=== PATIENT | female | born 1955 | race Caucasian/White ===

== ENCOUNTER 2019-01-24 18:59 | Inpatient (IN) | payer BC, MEDICARE, SELFPAY ==
[2019-01-24 19:04] VITALS: BP 126/71; PULSE 103; RESP 21; TEMP 36.2; O2SAT 100; BMI 21.7
--- NOTE | 2019-01-24 19:21 | ED.ABDPAIN ---
HPI - Abdominal Pain General Chief Complaint: Abdominal Pain Stated Complaint: Severe abd pain Time Seen by Provider: 01/24/19 19:04 Source: patient and family Mode of arrival: ambulatory Limitations: no limitations History of Present Illness HPI narrative: 63-year-old female nonsmoker with benign medical history presents with her in the chief complaint of severe abdominal pain with decreased bowel movements over the past day or 2, but then 4 BMs today. Her pain is become significantly worse over course of the day and she has persistent vomiting and has not been able to eat or drink. Related Data Home Medications Medication Instructions Recorded Confirmed calcium citrate-vitamin D3 1 tab PO DAILY 01/24/19 01/24/19 [Calcitrate-Vitamin D] [id number] 1 tab PO DAILY 01/24/19 01/24/19 [Multivitamin Women 50 Plus] simvastatin 5 mg PO DAILY 01/24/19 01/24/19 timolol maleate 1 drp EYE-LEFT BID 01/24/19 01/24/19 Allergies Allergy/AdvReac Type Severity Reaction Status Date / Time No Known Drug Allergies Allergy Verified 01/24/19 19:04 Review of Systems Constitutional Denies chills, Denies fever(s), Denies lethargy, Reports poor appetite and Denies weakness Eyes Denies change in vision, Denies eye discharge, Denies irritation and Denies loss of vision ENT Ears, Nose, Mouth, and Throat: Denies change in voice, Denies neck pain and Denies sore throat Cardiovascular Denies chest pain, Denies irregular heart rhythm, Denies lightheadedness, Denies palpitations, Denies dyspnea, Denies dyspnea on exertion and Denies orthopnea Respiratory Denies cough, Denies dyspnea, Denies dyspnea on exertion and Denies wheezing Gastrointestinal Gastrointestinal: Reports abdominal pain, Denies change in bowel habits, Denies diarrhea, Denies nausea and Denies vomiting Genitourinary Denies hematuria, Denies flank pain, Denies urinary incontinence and Denies urinary urgency Musculoskeletal Denies neck pain Integumentary/Breasts Denies pruritus, Denies erythema, Denies rash and Denies wounds Neurologic Denies confusion, Denies loss of vision and Denies weakness Psychiatric Denies anxiety, Denies confusion, Denies depression, Denies homicidal ideation and Denies suicidal ideation Endocrine Denies palpitations Hematologic/Lymphatic Denies easy bruising Allergic/Immunologic Denies wheezing [facility] Medical History Elevated cholesterol (Chronic) Surgical History History of (Resolved) Family History (Updated 01/24/19 @ 21:30 by Sorin Albarado MD) Brother Cancer Social History household members: spouse Smoking Status: Former smoker alcohol intake: current Family History Brother Cancer Social History household members: spouse Smoking Status: Former smoker alcohol intake: current Exam Narrative Exam Narrative: GENERAL: 63-year-old female appears stated age, obviously in significant distress, rubbing her abdomen rocking back and forth, holding an emesis bag HEAD: Atraumatic. Normocephalic. No temporal or scalp tenderness. EYES: Pupils equal round and reactive. Extraocular motions intact. No scleral icterus. No injection or drainage. ENT: Nose without bleeding, purulent drainage or septal hematoma. Throat without erythema, tonsillar hypertrophy or exudate. Uvula midline. Airway patent. NECK: Trachea midline. No JVD or lymphadenopathy. Supple, nontender, no meningeal signs. CARDIOVASCULAR: Regular rate and rhythm without murmurs, gallops, or rubs. RESPIRATORY: Clear to auscultation. Breath sounds equal bilaterally. No wheezes, rales, or rhonchi. GASTROINTESTINAL: Guarding in her mid abdomen which is soft but very tender EXTREMITIES: No clubbing, cyanosis, or edema. No joint tenderness, effusion, or edema noted. BACK: Nontender without deformity or crepitance. No flank tenderness. NEURO: AOx3. SKIN: No rash or erythema. Initial Vital Signs Initial Vital Signs: Vital Signs Temperature 97.1 F L 01/24/19 19:04 Pulse Rate 103 H 01/24/19 19:04 Respiratory Rate 21 01/24/19 19:04 Blood Pressure 126/71 01/24/19 19:04 Pulse Oximetry 100 01/24/19 19:04 Course Orders Ordered: ED Orders 01/24/19 19:09 EKG-12 Lead Stat 01/24/19 19:22 XR KUB Stat 01/24/19 19:35 Complete Blood Count AUTO DIFF Stat Comprehensive Metabolic Panel Stat Lipase Stat Partial Thromboplastin Time Stat Prothrombin Time INR Stat 01/24/19 20:44 CT abdomen pelvis w con Stat 01/24/19 21:00 Urine Microscopic Stat 01/25/19 02:10 MRSA PCR Routine 01/25/19 02:20 Consult to Discharge Planning Routine Education, smoking cessation ONGOING 01/25/19 05:00 Complete Blood Count AUTO DIFF Routine Comprehensive Metabolic Panel Routine Magnesium Routine Gabapentin (Neurontin) 300 mg PO BID [facility] Hydromorphone HCl (Dilaudid) 1 mg IV Q3H PRN PRN Reason: Pain, Severe (7-10) FENT 2MCG/ML BUPIV 0.125% EPI (Fentanyl/Bupiv/Ns 2mcg/Ml - 0.125%) 2 mcg in 1 mls @ 6 mls/hr EPIDURAL CONT [facility] Last Admin: 01/25/19 02:41 Dose: 6 mls/hr Lactated Ringer's (Lactated Ringers) 1,000 mls @ 125 mls/hr IV CONT [facility] Last Admin: 01/25/19 02:30 Dose: 125 mls/hr Piperacillin/Tazobactam/Dextrose (Zosyn) 3.375 gm in 50 mls @ 100 mls/hr IV Q6H [facility] Naloxone HCl (Narcan) 0.2 mg IV Q2MIN PRN PRN Reason: Opiate Reversal Ondansetron HCl (Zofran) 4 mg IV Q6HR PRN PRN Reason: Nausea And Vomiting Ondansetron HCl (Zofran) 4 mg IV Q4HR PRN PRN Reason: Nausea And Vomiting Timolol Maleate (Timoptic 0.5%) 1 drops EYE-LEFT BID [facility] Discontinued Medications Fentanyl (Sublimaze) 50 mcg IV Q5MIN PRN PRN Reason: Pain, Moderate (4-6) Hydromorphone HCl (Dilaudid) 0.5 mg IV NOW ONE Stop: 01/24/19 19:23 Last Admin: 01/24/19 19:28 Dose: 0.5 mg Hydromorphone HCl (Dilaudid) 0.5 mg IV NOW ONE Stop: 01/24/19 20:07 Last Admin: 01/24/19 20:10 Dose: 0.5 mg Hydromorphone HCl (Dilaudid) 0.5 mg IV Q5MIN PRN PRN Reason: Pain, Moderate (4-6) Sodium Chloride (Normal Saline 0.9%) 1,000 mls @ 1,000 mls/hr IV BOLUS ONE Stop: 01/24/19 20:21 Last Infusion: 01/24/19 21:06 Dose: 0 mls/hr Admin: 01/24/19 19:29 Dose: 1,000 mls/hr Lactated Ringer's (Lactated Ringers) 1,000 mls @ 42 mls/hr IV CONT [facility] Last Infusion: 01/25/19 00:11 Dose: 0 mls/hr Admin: 01/25/19 00:10 Dose: 42 mls/hr Piperacillin/Tazobactam/Dextrose (Zosyn) 3.375 gm in 50 mls @ 100 mls/hr IV NOW ONE Stop: 01/24/19 23:31 Last Infusion: 01/24/19 22:30 Dose: 0 mls/hr Admin: 01/24/19 22:20 Dose: 100 mls/hr Lorazepam (Ativan) 0.25 mg IV NOW PRN PRN Reason: Anxiety Metoclopramide HCl (Reglan) 10 mg IV NOW PRN PRN Reason: Nausea And Vomiting Ondansetron HCl (Zofran) 4 mg IV NOW ONE Stop: 01/24/19 19:23 Last Admin: 01/24/19 19:29 Dose: 4 mg Ondansetron HCl (Zofran) 4 mg IV NOW PRN PRN Reason: Nausea And Vomiting Oxycodone/Acetaminophen (Percocet 5/325) 1 tab PO Q30MIN PRN PRN Reason: Mild or moderate pain Consultations Consultation #1: Call to General surgery immediately upon completion of abdominal x-ray, he will see patient at bedside, requests CT, but plans for OR Vital Signs - 8 hr 01/24/19 20:03 01/24/19 21:05 01/24/19 21:40 Temperature 98.4 F Pulse Rate 72 88 91 H Respiratory Rate 14 14 Blood Pressure 164/87 H Blood Pressure [Left Arm] 144/73 H 140/72 Pulse Oximetry 98 98 100 01/25/19 00:56 01/25/19 00:59 01/25/19 01:05 Temperature 99.0 F Pulse Rate 116 H 119 H 131 H Respiratory Rate 19 17 29 H Blood Pressure 152/82 H 123/81 116/73 Blood Pressure [Left Arm] Pulse Oximetry 98 97 98 01/25/19 01:09 01/25/19 01:14 01/25/19 01:19 Temperature Pulse Rate 130 H 127 H 114 H Respiratory Rate 19 28 H 22 Blood Pressure 121/77 118/76 106/71 Blood Pressure [Left Arm] Pulse Oximetry 99 99 98 01/25/19 01:24 01/25/19 01:26 01/25/19 01:29 Temperature Pulse Rate 111 H 99 H 95 H Respiratory Rate 22 16 18 Blood Pressure 88/59 L 84/53 L 80/53 L Blood Pressure [Left Arm] Pulse Oximetry 97 96 96 01/25/19 01:34 01/25/19 01:38 01/25/19 01:40 Temperature Pulse Rate 95 H 85 80 Respiratory Rate 10 L 17 11 L Blood Pressure 76/31 L 82/45 L 81/48 L Blood Pressure [Left Arm] Pulse Oximetry 97 97 95 01/25/19 01:45 01/25/19 01:48 01/25/19 01:52 Temperature 99.6 F Pulse Rate 87 80 Respiratory Rate 18 14 Blood Pressure 76/41 L 76/46 L Blood Pressure [Left Arm] Pulse Oximetry 96 94 01/25/19 01:53 01/25/19 01:55 01/25/19 01:58 Temperature Pulse Rate 101 H 103 H 105 H Respiratory Rate Blood Pressure 102/51 L 105/38 L 112/63 Blood Pressure [Left Arm] Pulse Oximetry 01/25/19 01:59 01/25/19 02:17 01/25/19 02:32 Temperature 98.9 F Pulse Rate 101 H 103 H 99 H Respiratory Rate 21 17 Blood Pressure 106/55 L 116/60 114/57 L Blood Pressure [Left Arm] Pulse Oximetry 97 96 01/25/19 03:12 Temperature Pulse Rate 103 H Respiratory Rate 18 Blood Pressure 111/58 L Blood Pressure [Left Arm] Pulse Oximetry 95 MDM - Abdominal Pain Lab Data Result diagrams: 01/24/19 19:35 01/24/19 19:35 Lab Results 01/24/19 01/24/19 01/24/19 Range/Units 19:35 19:35 19:35 WBC 19.5 H (4.5-11.0) X10^3/uL RBC 4.92 (4.0-5.2) X10^6/uL Hgb 15.5 (12.0-16.0) g/dL Hct 46.2 H (36-46) % MCV 93.9 (80-100) fL MCH 31.6 (26-34) PG MCHC 33.6 (30-36) % RDW 13.5 (11.6-14.8) % Plt Count 304 (150-400) X10^3/uL Neut % (Auto) 85.9 H (50-75) % Lymph % (Auto) 5.3 L (25-40) % [place] % (Auto) 8.5 (3-14) % Eos % (Auto) 0.1 L (2-4) % Baso % (Auto) 0.2 (0-2) % Neut # (Auto) 97993 H (1085-4126) /uL Lymph # (Auto) 1000 L (6580-5615) /uL [place] # (Auto) 1700 H (0-900) /uL Eos # (Auto) 0 (0-450) /uL Baso # (Auto) 0 (0-100) /uL PT 11.0 (10.1-12.7) SECONDS INR 1.0 (0.9-1.3) APTT 28 (26.4-36.2) SECONDS Sodium 141 (137-145) mmol/L Potassium 3.8 (3.4-5.1) mmol/L Chloride 104 (98-107) mmol/L Carbon Dioxide 22 (22-32) mmol/L BUN 20 H (7-17) mg/dL Creatinine 0.70 (0.52-1.04) mg/dL Estimated GFR > 60.0 (>60) mL/min BUN/Creatinine Ratio 28.6 H (6-22) Glucose 163 H (80-110) mg/dL Calcium 10.0 (8.4-10.2) mg/dL Total Bilirubin 0.8 (0.2-1.3) mg/dL AST 35 (14-36) IU/L ALT 37 (9-52) IU/L Alkaline Phosphatase 98 (38-126) U/L Total Protein 7.5 (6.3-8.2) g/dL Albumin 4.8 (3.5-5.0) g/dL Globulin 2.7 (1.7-4.1) g/dL Albumin/Globulin Ratio 1.8 (1.0-2.8) Lipase 55 (23-300) U/L Urine RBC (0-5/HPF) Urine WBC (0-5/HPF) Urine Bacteria (None) Hyaline Casts (None) Ur Culture Indicated? 01/24/19 01/24/19 01/24/19 Range/Units 19:35 19:35 21:00 WBC Cancelled (4.5-11.0) X10^3/uL RBC Cancelled (4.0-5.2) X10^6/uL Hgb Cancelled (12.0-16.0) g/dL Hct Cancelled (36-46) % MCV Cancelled (80-100) fL MCH Cancelled (26-34) PG MCHC Cancelled (30-36) % RDW Cancelled (11.6-14.8) % Plt Count Cancelled (150-400) X10^3/uL Neut % (Auto) Cancelled (50-75) % Lymph % (Auto) Cancelled (25-40) % [place] % (Auto) Cancelled (3-14) % Eos % (Auto) Cancelled (2-4) % Baso % (Auto) Cancelled (0-2) % Neut # (Auto) Cancelled (4096-0685) /uL Lymph # (Auto) Cancelled (2743-9814) /uL [place] # (Auto) Cancelled (0-900) /uL Eos # (Auto) Cancelled (0-450) /uL Baso # (Auto) Cancelled (0-100) /uL PT (10.1-12.7) SECONDS INR (0.9-1.3) APTT (26.4-36.2) SECONDS Sodium Cancelled (137-145) mmol/L Potassium Cancelled (3.4-5.1) mmol/L Chloride Cancelled (98-107) mmol/L Carbon Dioxide Cancelled (22-32) mmol/L BUN Cancelled (7-17) mg/dL Creatinine Cancelled (0.52-1.04) mg/dL Estimated GFR Cancelled (>60) mL/min BUN/Creatinine Ratio Cancelled (6-22) Glucose Cancelled (80-110) mg/dL Calcium Cancelled (8.4-10.2) mg/dL Total Bilirubin Cancelled (0.2-1.3) mg/dL AST Cancelled (14-36) IU/L ALT Cancelled (9-52) IU/L Alkaline Phosphatase Cancelled (38-126) U/L Total Protein Cancelled (6.3-8.2) g/dL Albumin Cancelled (3.5-5.0) g/dL Globulin Cancelled (1.7-4.1) g/dL Albumin/Globulin Ratio Cancelled (1.0-2.8) Lipase Cancelled (23-300) U/L Urine RBC None seen (0-5/HPF) Urine WBC None seen (0-5/HPF) Urine Bacteria None seen (None) Hyaline Casts 1-5/lpf (None) Ur Culture Indicated? Cult not indicated Point of care testing: Urine Dip Bedside Urine Glucose Negative Bedside Urine Bilirubin - Negative Bedside Urine Ketone ++ 40 Urine Specific [place] 1.030 Bedside Urine Occult Blood - Negative Bedside Urine pH 5.5 Bedside Urine Protein +/- 15 Bedside Urine Urobilinogen +/- 1mg Bedside Urine Nitrite - Negative Bedside Urine Leukocytes - Negative Esterase Imaging Data Abdominal x-ray: Radiologist's impression: [place] [address] XRay Report Signed Patient: Lauren Centeno CMR#: [id number] : 4Acct:[id number] Age/Sex: 63 / FDate of Service: 01/24/19 Loc: ED Accession Number: [id number] Procedure: XR KUB Ordering Provider: Vasile Sawant D.O. PROCEDURE: XR KUB INDICATIONS: severe abdominal pain with vomiting TECHNIQUE: One view of the abdomen acquired. COMPARISON: None. FINDINGS: Surgical changes and devices: None. Bowel: There is marked gaseous distention of the colon in the left lower quadrant measuring up to 8.5 cm in diameter with air-fluid levels. No gas demonstrated in the rectum. The findings are suspicious for a distal colonic obstruction likely due to be sigmoid volvulus. Soft tissues: No suspicious abdominal calcifications. Bones: No suspicious bony lesions. IMPRESSION: 1. Marked distention of the colon in the left lower quadrant with air-fluid levels consistent with a distal colonic obstruction and suggestive of a sigmoid volvulus. Findings discussed with Dr. Sawant on 01/24/19 at 8:28 PM. Dictated by: Sanford Suarez M.D. on 01/24/2019 at 20:27 CT scan - abdomen: Radiologist's impression: [address] [address] [address] Scan Report Signed Patient: Lauren Centeno CMR#: [id number] : 4Acct:[id number] Age/Sex: 63 / FDate of Service: 01/24/19 Loc: TO613-2 Accession Number: [id number] Procedure: CT abdomen pelvis w con Ordering Provider: Vasile Sawant D.O. PROCEDURE: CT ABDOMEN PELVIS W CON INDICATIONS: severe abdominal pain, obstruction/volvulus, ischemia? TECHNIQUE: After the administration of intravenous contrast, 5 mm thick sections acquired from the diaphragm to the symphysis. 5 mm coronal and sagittal reformats were acquired. For radiation dose reduction, the following was used: automated exposure control, adjustment of mA and/or kV according to patient size. COMPARISON: [facility], CR, XR KUB, 01/24/2019, 19:23. FINDINGS: Image quality: Excellent. ABDOMEN: Lung bases: There is mild dependent atelectasis bilaterally. Normal Heart size is normal. Solid organs: Evaluation of the liver demonstrates no focal hepatic lesions. The gallbladder appears within normal limits without calcified gallstones. Biliary system is non-dilated. Pancreas enhances normally. No peripancreatic fat stranding or fluid collections. No pancreatic duct dilatation. The spleen is normal in size. No adrenal nodules. Kidneys demonstrate no hydronephrosis. There is a right renal cortical cyst. Peritoneum and bowel: There is mild gastric wall thickening. Small bowel loops are predominantly nondistended but demonstrate enhancement. There is marked distention of the cecum, measuring up to 8.3 cm in diameter with a twisting of the mesentery in the right mid abdomen. Findings are consistent with a cecal volvulus. There is associated colonic wall thickening most severe in the right lower quadrant with decreased wall enhancement. The findings are suggestive of bowel ischemia. There is a moderate amount of free fluid in the abdomen and pelvis including interloop fluid within the mesentery. No definite intraperitoneal free air. No definitive pneumatosis or portal venous gas. Nodes and vessels: No retroperitoneal or mesenteric adenopathy by size criteria. Aorta and inferior vena cava are normal in size. Miscellaneous: No ventral hernias. PELVIS: Genitourinary: Bladder wall thickness is normal. Miscellaneous: No inguinal hernias or adenopathy. Bones: No suspicious bony lesions. No vertebral body compression fractures. IMPRESSION: 1. 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 2. Moderate free fluid in the abdomen and pelvis. No definite intracranial free air. Findings discussed with Dr. Sawant on 01/24/19 at 9:38 PM. Dictated by: Sanford Suarez M.D. on 01/24/2019 at 21:35 Approved by: Sanford Suarez M.D. on 01/24/2019 at 21:42 Discharge Plan Departure Patient Disposition: Admitted As Inpatient Clinical Impression: Sigmoid volvulus, Large bowel obstruction Discharge Date/Time: 01/24/19 21:51 Interventions: ED Discharge Assessment Last Done: 01/24/19 21:51 Admit Date/Time: 01/24/19 21:21 Admit Provider: Sorin Albarado
[2019-01-24] MEDS: HYDROMORPHONE 1 MG INJ 0.5 MG IV ×2 (19:28→20:10)
[2019-01-24] MEDS: ONDANSETRON 4 MG/2 ML INJ IV (19:29)
[2019-01-24] MEDS: SODIUM CHLORIDE 0.9% 1,000 ML 1000 ML IV (19:29)
[2019-01-24 19:33] VITALS: BP 139/88; PULSE 82; RESP 30; O2SAT 98
[2019-01-24 19:56] LABS: PTT Partial Thromboplastin Tim 28 SECONDS (26.4-36.2)
[2019-01-24 19:58] LABS: Alanine Aminotransferase 37 IU/L (9-52); Albumin 4.8 g/dL (3.5-5.0); Albumin Globulin Ratio 1.8 (1.0-2.8); Alkaline Phosphatase 98 U/L (38-126); Aspartate Aminotransferase 35 IU/L (14-36); BUN Creatinine Ratio 28.6 (6-22); Bilirubin Total 0.8 mg/dL (0.2-1.3); Blood Urea Nitrogen 20 mg/dL (7-17); Carbon Dioxide 22 mmol/L (22-32); Chloride 104 mmol/L (98-107); Estimated Glomerular Filt Rate > 60.0 mL/min (>60); Globulin 2.7 g/dL (1.7-4.1); Glucose 163 mg/dL (80-110); HEMOLYSIS 27 (0-50); Lipase 55 U/L (23-300); Potassium 3.8 mmol/L (3.4-5.1); Sodium 141 mmol/L (137-145); Total Protein 7.5 g/dL (6.3-8.2)
[2019-01-24 20:03] VITALS: BP 144/73; PULSE 72; RESP 14; O2SAT 98
[2019-01-24 20:04] LABS: Add Manual Diff / Slide Review NO; Basophils Absolute Auto 0 /uL (0-100); Basophils Percent Auto 0.2 % (0-2); Eosinophils Absolute Auto 0 /uL (0-450); Eosinophils Percent Auto 0.1 % (2-4); Hematocrit 46.2 % (36-46); Hemoglobin 15.5 g/dL (12.0-16.0); Lymphocytes Absolute Auto 1000 /uL (1100-4500); Lymphocytes Percent Auto 5.3 % (25-40); Mean Corpuscular HGB Conc 33.6 % (30-36); Mean Corpuscular Hemoglobin 31.6 PG (26-34); Mean Corpuscular Volume 93.9 fL (80-100); Monocytes Absolute Auto 1700 /uL (0-900); Monocytes Percent Auto 8.5 % (3-14); Neutrophils Absolute Auto 16800 /uL (1500-7000); Neutrophils Percent Auto 85.9 % (50-75); Platelet Count 304 X10^3/uL (150-400); Red Blood Cell Count 4.92 X10^6/uL (4.0-5.2); Red Cell Distribution Width 13.5 % (11.6-14.8); White Blood Cell Count 19.5 X10^3/uL (4.5-11.0)
--- NOTE | 2019-01-24 20:24 | ED_ITS ---
HPI - Abdominal Pain General Chief Complaint: Abdominal Pain Stated Complaint: Severe abd pain Time Seen by Provider: 01/24/19 19:04 Source: patient and family Mode of arrival: ambulatory Limitations: no limitations History of Present Illness HPI narrative: 63-year-old female nonsmoker with benign medical history presents with her in the chief complaint of severe abdominal pain with decreased bowel movements over the past day or 2, but then 4 BMs today. Her pain is become significantly worse over course of the day and she has persistent vomiting and has not been able to eat or drink. Related Data Home Medications Medication Instructions Recorded Confirmed calcium citrate-vitamin D3 1 tab PO DAILY 01/24/19 01/24/19 [Calcitrate-Vitamin D] eunuhvyh-[id number]-bzyl-FA-lutein 1 tab PO DAILY 01/24/19 01/24/19 [Multivitamin Women 50 Plus] simvastatin 5 mg PO DAILY 01/24/19 01/24/19 timolol maleate 1 drp EYE-LEFT BID 01/24/19 01/24/19 Allergies Allergy/AdvReac Type Severity Reaction Status Date / Time No Known Drug Allergies Allergy Verified 01/24/19 19:04 Review of Systems Constitutional Denies chills, Denies fever(s), Denies lethargy, Reports poor appetite and Denies weakness Eyes Denies change in vision, Denies eye discharge, Denies irritation and Denies loss of vision ENT Ears, Nose, Mouth, and Throat: Denies change in voice, Denies neck pain and Denies sore throat Cardiovascular Denies chest pain, Denies irregular heart rhythm, Denies lightheadedness, Denies palpitations, Denies dyspnea, Denies dyspnea on exertion and Denies orthopnea Respiratory Denies cough, Denies dyspnea, Denies dyspnea on exertion and Denies wheezing Gastrointestinal Gastrointestinal: Reports abdominal pain, Denies change in bowel habits, Denies diarrhea, Denies nausea and Denies vomiting Genitourinary Denies hematuria, Denies flank pain, Denies urinary incontinence and Denies urinary urgency Musculoskeletal Denies neck pain Integumentary/Breasts Denies pruritus, Denies erythema, Denies rash and Denies wounds Neurologic Denies confusion, Denies loss of vision and Denies weakness Psychiatric Denies anxiety, Denies confusion, Denies depression, Denies homicidal ideation and Denies suicidal ideation Endocrine Denies palpitations Hematologic/Lymphatic Denies easy bruising Allergic/Immunologic Denies wheezing [facility] Medical History Elevated cholesterol (Chronic) Surgical History History of (Resolved) Family History (Updated 01/24/19 @ 21:30 by Sorin Albarado MD) Brother Cancer Social History household members: spouse Smoking Status: Former smoker alcohol intake: current Family History Brother Cancer Social History household members: spouse Smoking Status: Former smoker alcohol intake: current Exam Narrative Exam Narrative: GENERAL: 63-year-old female appears stated age, obviously in significant distress, rubbing her abdomen rocking back and forth, holding an emesis bag HEAD: Atraumatic. Normocephalic. No temporal or scalp tenderness. EYES: Pupils equal round and reactive. Extraocular motions intact. No scleral icterus. No injection or drainage. ENT: Nose without bleeding, purulent drainage or septal hematoma. Throat without erythema, tonsillar hypertrophy or exudate. Uvula midline. Airway patent. NECK: Trachea midline. No JVD or lymphadenopathy. Supple, nontender, no meningeal signs. CARDIOVASCULAR: Regular rate and rhythm without murmurs, gallops, or rubs. RESPIRATORY: Clear to auscultation. Breath sounds equal bilaterally. No wheezes, rales, or rhonchi. GASTROINTESTINAL: Guarding in her mid abdomen which is soft but very tender EXTREMITIES: No clubbing, cyanosis, or edema. No joint tenderness, effusion, or edema noted. BACK: Nontender without deformity or crepitance. No flank tenderness. NEURO: AOx3. SKIN: No rash or erythema. Initial Vital Signs Initial Vital Signs: Vital Signs Temperature 97.1 F L 01/24/19 19:04 Pulse Rate 103 H 01/24/19 19:04 Respiratory Rate 21 01/24/19 19:04 Blood Pressure 126/71 01/24/19 19:04 Pulse Oximetry 100 01/24/19 19:04 Course Orders Ordered: ED Orders 01/24/19 19:09 EKG-12 Lead Stat 01/24/19 19:22 XR KUB Stat 01/24/19 19:35 Complete Blood Count AUTO DIFF Stat Comprehensive Metabolic Panel Stat Lipase Stat Partial Thromboplastin Time Stat Prothrombin Time INR Stat 01/24/19 20:44 CT abdomen pelvis w con Stat 01/24/19 21:00 Urine Microscopic Stat 01/25/19 02:10 MRSA PCR Routine 01/25/19 02:20 Consult to Discharge Planning Routine Education, smoking cessation ONGOING 01/25/19 05:00 Complete Blood Count AUTO DIFF Routine Comprehensive Metabolic Panel Routine Magnesium Routine Gabapentin (Neurontin) 300 mg PO BID [facility] Hydromorphone HCl (Dilaudid) 1 mg IV Q3H PRN PRN Reason: Pain, Severe (7-10) FENT 2MCG/ML BUPIV 0.125% EPI (Fentanyl/Bupiv/Ns 2mcg/Ml - 0.125%) 2 mcg in 1 mls @ 6 mls/hr EPIDURAL CONT [facility] Last Admin: 01/25/19 02:41 Dose: 6 mls/hr Lactated Ringer's (Lactated Ringers) 1,000 mls @ 125 mls/hr IV CONT [facility] Last Admin: 01/25/19 02:30 Dose: 125 mls/hr Piperacillin/Tazobactam/Dextrose (Zosyn) 3.375 gm in 50 mls @ 100 mls/hr IV Q6H [facility] Naloxone HCl (Narcan) 0.2 mg IV Q2MIN PRN PRN Reason: Opiate Reversal Ondansetron HCl (Zofran) 4 mg IV Q6HR PRN PRN Reason: Nausea And Vomiting Ondansetron HCl (Zofran) 4 mg IV Q4HR PRN PRN Reason: Nausea And Vomiting Timolol Maleate (Timoptic 0.5%) 1 drops EYE-LEFT BID [facility] Discontinued Medications Fentanyl (Sublimaze) 50 mcg IV Q5MIN PRN PRN Reason: Pain, Moderate (4-6) Hydromorphone HCl (Dilaudid) 0.5 mg IV NOW ONE Stop: 01/24/19 19:23 Last Admin: 01/24/19 19:28 Dose: 0.5 mg Hydromorphone HCl (Dilaudid) 0.5 mg IV NOW ONE Stop: 01/24/19 20:07 Last Admin: 01/24/19 20:10 Dose: 0.5 mg Hydromorphone HCl (Dilaudid) 0.5 mg IV Q5MIN PRN PRN Reason: Pain, Moderate (4-6) Sodium Chloride (Normal Saline 0.9%) 1,000 mls @ 1,000 mls/hr IV BOLUS ONE Stop: 01/24/19 20:21 Last Infusion: 01/24/19 21:06 Dose: 0 mls/hr Admin: 01/24/19 19:29 Dose: 1,000 mls/hr Lactated Ringer's (Lactated Ringers) 1,000 mls @ 42 mls/hr IV CONT [facility] Last Infusion: 01/25/19 00:11 Dose: 0 mls/hr Admin: 01/25/19 00:10 Dose: 42 mls/hr Piperacillin/Tazobactam/Dextrose (Zosyn) 3.375 gm in 50 mls @ 100 mls/hr IV NOW ONE Stop: 01/24/19 23:31 Last Infusion: 01/24/19 22:30 Dose: 0 mls/hr Admin: 01/24/19 22:20 Dose: 100 mls/hr Lorazepam (Ativan) 0.25 mg IV NOW PRN PRN Reason: Anxiety Metoclopramide HCl (Reglan) 10 mg IV NOW PRN PRN Reason: Nausea And Vomiting Ondansetron HCl (Zofran) 4 mg IV NOW ONE Stop: 01/24/19 19:23 Last Admin: 01/24/19 19:29 Dose: 4 mg Ondansetron HCl (Zofran) 4 mg IV NOW PRN PRN Reason: Nausea And Vomiting Oxycodone/Acetaminophen (Percocet 5/325) 1 tab PO Q30MIN PRN PRN Reason: Mild or moderate pain Consultations Consultation #1: Call to General surgery immediately upon completion of abdominal x-ray, he will see patient at bedside, requests CT, but plans for OR Vital Signs - 8 hr 01/24/19 20:03 01/24/19 21:05 01/24/19 21:40 Temperature 98.4 F Pulse Rate 72 88 91 H Respiratory Rate 14 14 Blood Pressure 164/87 H Blood Pressure [Left Arm] 144/73 H 140/72 Pulse Oximetry 98 98 100 01/25/19 00:56 01/25/19 00:59 01/25/19 01:05 Temperature 99.0 F Pulse Rate 116 H 119 H 131 H Respiratory Rate 19 17 29 H Blood Pressure 152/82 H 123/81 116/73 Blood Pressure [Left Arm] Pulse Oximetry 98 97 98 01/25/19 01:09 01/25/19 01:14 01/25/19 01:19 Temperature Pulse Rate 130 H 127 H 114 H Respiratory Rate 19 28 H 22 Blood Pressure 121/77 118/76 106/71 Blood Pressure [Left Arm] Pulse Oximetry 99 99 98 01/25/19 01:24 01/25/19 01:26 01/25/19 01:29 Temperature Pulse Rate 111 H 99 H 95 H Respiratory Rate 22 16 18 Blood Pressure 88/59 L 84/53 L 80/53 L Blood Pressure [Left Arm] Pulse Oximetry 97 96 96 01/25/19 01:34 01/25/19 01:38 01/25/19 01:40 Temperature Pulse Rate 95 H 85 80 Respiratory Rate 10 L 17 11 L Blood Pressure 76/31 L 82/45 L 81/48 L Blood Pressure [Left Arm] Pulse Oximetry 97 97 95 01/25/19 01:45 01/25/19 01:48 01/25/19 01:52 Temperature 99.6 F Pulse Rate 87 80 Respiratory Rate 18 14 Blood Pressure 76/41 L 76/46 L Blood Pressure [Left Arm] Pulse Oximetry 96 94 01/25/19 01:53 01/25/19 01:55 01/25/19 01:58 Temperature Pulse Rate 101 H 103 H 105 H Respiratory Rate Blood Pressure 102/51 L 105/38 L 112/63 Blood Pressure [Left Arm] Pulse Oximetry 01/25/19 01:59 01/25/19 02:17 01/25/19 02:32 Temperature 98.9 F Pulse Rate 101 H 103 H 99 H Respiratory Rate 21 17 Blood Pressure 106/55 L 116/60 114/57 L Blood Pressure [Left Arm] Pulse Oximetry 97 96 01/25/19 03:12 Temperature Pulse Rate 103 H Respiratory Rate 18 Blood Pressure 111/58 L Blood Pressure [Left Arm] Pulse Oximetry 95 MDM - Abdominal Pain Lab Data Result diagrams: 01/24/19 19:35 01/24/19 19:35 Lab Results 01/24/19 01/24/19 01/24/19 Range/Units 19:35 19:35 19:35 WBC 19.5 H (4.5-11.0) X10^3/uL RBC 4.92 (4.0-5.2) X10^6/uL Hgb 15.5 (12.0-16.0) g/dL Hct 46.2 H (36-46) % MCV 93.9 (80-100) fL MCH 31.6 (26-34) PG MCHC 33.6 (30-36) % RDW 13.5 (11.6-14.8) % Plt Count 304 (150-400) X10^3/uL Neut % (Auto) 85.9 H (50-75) % Lymph % (Auto) 5.3 L (25-40) % Kendall % (Auto) 8.5 (3-14) % Eos % (Auto) 0.1 L (2-4) % Baso % (Auto) 0.2 (0-2) % Neut # (Auto) 19163 H (5825-1782) /uL Lymph # (Auto) 1000 L (6773-1386) /uL Kendall # (Auto) 1700 H (0-900) /uL Eos # (Auto) 0 (0-450) /uL Baso # (Auto) 0 (0-100) /uL PT 11.0 (10.1-12.7) SECONDS INR 1.0 (0.9-1.3) APTT 28 (26.4-36.2) SECONDS Sodium 141 (137-145) mmol/L Potassium 3.8 (3.4-5.1) mmol/L Chloride 104 (98-107) mmol/L Carbon Dioxide 22 (22-32) mmol/L BUN 20 H (7-17) mg/dL Creatinine 0.70 (0.52-1.04) mg/dL Estimated GFR > 60.0 (>60) mL/min BUN/Creatinine Ratio 28.6 H (6-22) Glucose 163 H (80-110) mg/dL Calcium 10.0 (8.4-10.2) mg/dL Total Bilirubin 0.8 (0.2-1.3) mg/dL AST 35 (14-36) IU/L ALT 37 (9-52) IU/L Alkaline Phosphatase 98 (38-126) U/L Total Protein 7.5 (6.3-8.2) g/dL Albumin 4.8 (3.5-5.0) g/dL Globulin 2.7 (1.7-4.1) g/dL Albumin/Globulin Ratio 1.8 (1.0-2.8) Lipase 55 (23-300) U/L Urine RBC (0-5/HPF) Urine WBC (0-5/HPF) Urine Bacteria (None) Hyaline Casts (None) Ur Culture Indicated? 01/24/19 01/24/19 01/24/19 Range/Units 19:35 19:35 21:00 WBC Cancelled (4.5-11.0) X10^3/uL RBC Cancelled (4.0-5.2) X10^6/uL Hgb Cancelled (12.0-16.0) g/dL Hct Cancelled (36-46) % MCV Cancelled (80-100) fL MCH Cancelled (26-34) PG MCHC Cancelled (30-36) % RDW Cancelled (11.6-14.8) % Plt Count Cancelled (150-400) X10^3/uL Neut % (Auto) Cancelled (50-75) % Lymph % (Auto) Cancelled (25-40) % Kendall % (Auto) Cancelled (3-14) % Eos % (Auto) Cancelled (2-4) % Baso % (Auto) Cancelled (0-2) % Neut # (Auto) Cancelled (1190-7869) /uL Lymph # (Auto) Cancelled (5098-6661) /uL Kendall # (Auto) Cancelled (0-900) /uL Eos # (Auto) Cancelled (0-450) /uL Baso # (Auto) Cancelled (0-100) /uL PT (10.1-12.7) SECONDS INR (0.9-1.3) APTT (26.4-36.2) SECONDS Sodium Cancelled (137-145) mmol/L Potassium Cancelled (3.4-5.1) mmol/L Chloride Cancelled (98-107) mmol/L Carbon Dioxide Cancelled (22-32) mmol/L BUN Cancelled (7-17) mg/dL Creatinine Cancelled (0.52-1.04) mg/dL Estimated GFR Cancelled (>60) mL/min BUN/Creatinine Ratio Cancelled (6-22) Glucose Cancelled (80-110) mg/dL Calcium Cancelled (8.4-10.2) mg/dL Total Bilirubin Cancelled (0.2-1.3) mg/dL AST Cancelled (14-36) IU/L ALT Cancelled (9-52) IU/L Alkaline Phosphatase Cancelled (38-126) U/L Total Protein Cancelled (6.3-8.2) g/dL Albumin Cancelled (3.5-5.0) g/dL Globulin Cancelled (1.7-4.1) g/dL Albumin/Globulin Ratio Cancelled (1.0-2.8) Lipase Cancelled (23-300) U/L Urine RBC None seen (0-5/HPF) Urine WBC None seen (0-5/HPF) Urine Bacteria None seen (None) Hyaline Casts 1-5/lpf (None) Ur Culture Indicated? Cult not indicated Point of care testing: Urine Dip Bedside Urine Glucose Negative Bedside Urine Bilirubin - Negative Bedside Urine Ketone ++ 40 Urine Specific [place] 1.030 Bedside Urine Occult Blood - Negative Bedside Urine pH 5.5 Bedside Urine Protein +/- 15 Bedside Urine Urobilinogen +/- 1mg Bedside Urine Nitrite - Negative Bedside Urine Leukocytes - Negative Esterase Imaging Data Abdominal x-ray: Radiologist's impression: [place] [address] XRay Report Signed Patient: Lauren Centeno CMR#: [id number] : 4Acct:[id number] Age/Sex: 63 / FDate of Service: 01/24/19 Loc: ED Accession Number: [id number] Procedure: XR KUB Ordering Provider: Vasile Sawant D.O. PROCEDURE: XR KUB INDICATIONS: severe abdominal pain with vomiting TECHNIQUE: One view of the abdomen acquired. COMPARISON: None. FINDINGS: Surgical changes and devices: None. Bowel: There is marked gaseous distention of the colon in the left lower quadrant measuring up to 8.5 cm in diameter with air-fluid levels. No gas demonstrated in the rectum. The findings are suspicious for a distal colonic obstruction likely due to be sigmoid volvulus. Soft tissues: No suspicious abdominal calcifications. Bones: No suspicious bony lesions. IMPRESSION: 1. Marked distention of the colon in the left lower quadrant with air-fluid levels consistent with a distal colonic obstruction and suggestive of a sigmoid volvulus. Findings discussed with Dr. Sawant on 01/24/19 at 8:28 PM. Dictated by: Sanford Suarez M.D. on 01/24/2019 at 20:27 CT scan - abdomen: Radiologist's impression: [address] [address] [address] Scan Report Signed Patient: Lauren Centeno CMR#: [id number] : 4Acct:[id number] Age/Sex: 63 / FDate of Service: 01/24/19 Loc: OS257-4 Accession Number: [id number] Procedure: CT abdomen pelvis w con Ordering Provider: Vasile Sawant D.O. PROCEDURE: CT ABDOMEN PELVIS W CON INDICATIONS: severe abdominal pain, obstruction/volvulus, ischemia? TECHNIQUE: After the administration of intravenous contrast, 5 mm thick sections acquired from the diaphragm to the symphysis. 5 mm coronal and sagittal reformats were acquired. For radiation dose reduction, the following was used: automated exposure control, adjustment of mA and/or kV according to patient size. COMPARISON: [facility], CR, XR KUB, 01/24/2019, 19:23. FINDINGS: Image quality: Excellent. ABDOMEN: Lung bases: There is mild dependent atelectasis bilaterally. Normal Heart size is normal. Solid organs: Evaluation of the liver demonstrates no focal hepatic lesions. The gallbladder appears within normal limits without calcified gallstones. Biliary system is non-dilated. Pancreas enhances normally. No peripancreatic fat stranding or fluid collections. No pancreatic duct dilatation. The spleen is normal in size. No adrenal nodules. Kidneys demonstrate no hydronephrosis. There is a right renal cortical cyst. Peritoneum and bowel: There is mild gastric wall thickening. Small bowel loops are predominantly nondistended but demonstrate enhancement. There is marked distention of the cecum, measuring up to 8.3 cm in diameter with a twisting of the mesentery in the right mid abdomen. Findings are consistent with a cecal volvulus. There is associated colonic wall thickening most severe in the right lower quadrant with decreased wall enhancement. The findings are suggestive of bowel ischemia. There is a moderate amount of free fluid in the abdomen and pelvis including interloop fluid within the mesentery. No definite intraperitoneal free air. No definitive pneumatosis or portal venous gas. Nodes and vessels: No retroperitoneal or mesenteric adenopathy by size criteria. Aorta and inferior vena cava are normal in size. Miscellaneous: No ventral hernias. PELVIS: Genitourinary: Bladder wall thickness is normal. Miscellaneous: No inguinal hernias or adenopathy. Bones: No suspicious bony lesions. No vertebral body compression fractures. IMPRESSION: 1. 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 2. Moderate free fluid in the abdomen and pelvis. No definite intracranial free air. Findings discussed with Dr. Sawant on 01/24/19 at 9:38 PM. Dictated by: Sanford Suarez M.D. on 01/24/2019 at 21:35 Approved by: Sanford Suarez M.D. on 01/24/2019 at 21:42 Discharge Plan Departure Patient Disposition: Admitted As Inpatient Clinical Impression: Sigmoid volvulus, Large bowel obstruction Discharge Date/Time: 01/24/19 21:51 Interventions: ED Discharge Assessment Last Done: 01/24/19 21:51 Admit Date/Time: 01/24/19 21:21 Admit Provider: Sorin Albarado
--- NOTE | 2019-01-24 20:44 | DI.CT.S_ITS ---
PROCEDURE: CT ABDOMEN PELVIS W CON INDICATIONS: severe abdominal pain, obstruction/volvulus, ischemia? TECHNIQUE: After the administration of intravenous contrast, 5 mm thick sections acquired from the diaphragm to the symphysis. 5 mm coronal and sagittal reformats were acquired. For radiation dose reduction, the following was used: automated exposure control, adjustment of mA and/or kV according to patient size. COMPARISON: [facility], CR, XR KUB, 01/24/2019, 19:23. FINDINGS: Image quality: Excellent. ABDOMEN: Lung bases: There is mild dependent atelectasis bilaterally. Normal Heart size is normal. Solid organs: Evaluation of the liver demonstrates no focal hepatic lesions. The gallbladder appears within normal limits without calcified gallstones. Biliary system is non-dilated. Pancreas enhances normally. No peripancreatic fat stranding or fluid collections. No pancreatic duct dilatation. The spleen is normal in size. No adrenal nodules. Kidneys demonstrate no hydronephrosis. There is a right renal cortical cyst. Peritoneum and bowel: There is mild gastric wall thickening. Small bowel loops are predominantly nondistended but demonstrate enhancement. There is marked distention of the cecum, measuring up to 8.3 cm in diameter with a twisting of the mesentery in the right mid abdomen. Findings are consistent with a cecal volvulus. There is associated colonic wall thickening most severe in the right lower quadrant with decreased wall enhancement. The findings are suggestive of bowel ischemia. There is a moderate amount of free fluid in the abdomen and pelvis including interloop fluid within the mesentery. No definite intraperitoneal free air. No definitive pneumatosis or portal venous gas. Nodes and vessels: No retroperitoneal or mesenteric adenopathy by size criteria. Aorta and inferior vena cava are normal in size. Miscellaneous: No ventral hernias. PELVIS: Genitourinary: Bladder wall thickness is normal. Miscellaneous: No inguinal hernias or adenopathy. Bones: No suspicious bony lesions. No vertebral body compression fractures. IMPRESSION: 1. 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 2. Moderate free fluid in the abdomen and pelvis. No definite intracranial free air. Findings discussed with Dr. Sawant on 01/24/19 at 9:38 PM. Dictated by: Sanford Suarez M.D. on 01/24/2019 at 21:35 Approved by: Sanford Suarez M.D. on 01/24/2019 at 21:42
[2019-01-24 21:05] VITALS: BP 140/72; PULSE 88; RESP 14; O2SAT 98
--- NOTE | 2019-01-24 21:26 | P.HP_ITS ---
History of Present Illness Date Patient Seen: 01/24/19 Time Patient Seen: 21:00 Chief complaint: Severe abd pain Narrative: The patient is a woman who has been traveling. She is from [place]. Earlier today she developed diffuse abdominal pain. She told me that she has had 3 bowel movements. Two of them were normal and the 3rd was a little loose. No blood in her stool. Her belly be can distended and painful. She has had no nausea or vomiting. Her last p.o. was 8:00 a.m. except for some sips of water around lunch. The pain has been persistent worsening. She has never had this before. She had a normal colonoscopy she said 2 months ago. There were no polyps or tumors. She has not passed any flatus this evening. Patient History Medical History (Updated 01/24/19 @ 21:29 by Sorin Albarado MD) Elevated cholesterol (Chronic) Surgical History (Updated 01/24/19 @ 21:29 by Sorin Albarado MD) History of (Resolved) Family History (Updated 01/24/19 @ 21:30 by Sorin Albarado MD) Brother Cancer Social History Smoking Status: Never smoker Family & Social History Family History (Updated 01/24/19 @ 21:30 by Sorin Albarado MD) Brother Cancer Safety & Behavioral: Feels Safe in Current Yes Environment Tobacco & Substance use: Smoking Status Never smoker alcohol intake frequency a few times a week Substance Use Type does not use Meds Home Medications Medication Instructions Recorded Confirmed Type calcium citrate-vitamin D3 1 tab PO DAILY 01/24/19 01/24/19 History [Calcitrate-Vitamin D] wfqantuj-fed-afdj-FA-lutein 1 tab PO DAILY 01/24/19 01/24/19 History [Multivitamin Women 50 Plus] simvastatin 5 mg PO DAILY 01/24/19 01/24/19 History timolol maleate 1 drp EYE-LEFT BID 01/24/19 01/24/19 History Allergies Allergy/AdvReac Type Severity Reaction Status Date / Time No Known Drug Allergies Allergy Verified 01/24/19 19:04 Review of Systems Review of Systems Patient denies any fever chills. No cough cold or asthma. No chest pain or heart problems. Abdomen is diffusely tender. No prior trouble urinating. 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 Uses eyedrops. No sore throat or trouble swallowing. No tooth aches. No seizures or blackouts. No psychiatric illness depression anxiety. No problems with her thyroid pancreas that she is aware of. No unusual bruising or bleeding. Exam Vital Signs (past 8 hours): - 01/24/19 19:04 01/24/19 19:33 01/24/19 20:03 Temperature 97.1 F L Pulse Rate 103 H 82 72 Respiratory Rate 21 30 H 14 Blood Pressure 126/71 Blood Pressure [Left Arm] 139/88 144/73 H Pulse Oximetry 100 98 98 01/24/19 21:05 Temperature Pulse Rate 88 Respiratory Rate 14 Blood Pressure Blood Pressure [Left Arm] 140/72 Pulse Oximetry 98 Oxygen Delivery Method Room Air Narrative Exam Narrative: Thin cooperative woman in some distress from pain. Her eyes are nonicteric. Pupils equal round reactive to light. Conjunctivae are pink. Ears without lesion. Nasal septum is midline. Oral mucosa is dry. No open lesions or splits. There are no nodes in the neck or supraclavicular areas. Trachea is midline mobile. Thyroid is not enlarged. No neck masses or tenderness. Lungs are clear to auscultation without rales or rhonchi. Fair effort. Equal percussion. Hyper resonant. Heart regular rate and rhythm. There is a 2/6 sys tolic murmur heard at left sternal border without radiation. No bruit in the neck. Her abdomen is distended especially in the lower part. Difficult to assess her tenderness. Touch anti part seems to cause her to wince. But there is no involuntary guarding. The patient is alert and oriented x3. Speech rate and content are appropriate affect is appropriate. She has 1+ dorsalis pedis pulses. 2+ radial pulses. Objective Labs Result Diagrams: 01/24/19 19:35 01/24/19 19:35 Labs: Laboratory Results - last 24 hr 01/24/19 01/24/19 01/24/19 19:35 19:35 19:35 WBC 19.5 H RBC 4.92 Hgb 15.5 Hct 46.2 H MCV 93.9 MCH 31.6 MCHC 33.6 RDW 13.5 Plt Count 304 Neut % (Auto) 85.9 H Lymph % (Auto) 5.3 L [place] % (Auto) 8.5 Eos % (Auto) 0.1 L Baso % (Auto) 0.2 Neut # (Auto) 23939 H Lymph # (Auto) 1000 L [place] # (Auto) 1700 H Eos # (Auto) 0 Baso # (Auto) 0 PT 11.0 INR 1.0 APTT 28 Sodium 141 Potassium 3.8 Chloride 104 Carbon Dioxide 22 BUN 20 H Creatinine 0.70 Estimated GFR > 60.0 BUN/Creatinine Ratio 28.6 H Glucose 163 H Calcium 10.0 Total Bilirubin 0.8 AST 35 ALT 37 Alkaline Phosphatase 98 Total Protein 7.5 Albumin 4.8 Globulin 2.7 Albumin/Globulin Ratio 1.8 Lipase 55 01/24/19 01/24/19 19:35 19:35 WBC Cancelled RBC Cancelled Hgb Cancelled Hct Cancelled MCV Cancelled MCH Cancelled MCHC Cancelled RDW Cancelled Plt Count Cancelled Neut % (Auto) Cancelled Lymph % (Auto) Cancelled [place] % (Auto) Cancelled Eos % (Auto) Cancelled Baso % (Auto) Cancelled Neut # (Auto) Cancelled Lymph # (Auto) Cancelled [place] # (Auto) Cancelled Eos # (Auto) Cancelled Baso # (Auto) Cancelled PT INR APTT Sodium Cancelled Potassium Cancelled Chloride Cancelled Carbon Dioxide Cancelled BUN Cancelled Creatinine Cancelled Estimated GFR Cancelled BUN/Creatinine Ratio Cancelled Glucose Cancelled Calcium Cancelled Total Bilirubin Cancelled AST Cancelled ALT Cancelled Alkaline Phosphatase Cancelled Total Protein Cancelled Albumin Cancelled Globulin Cancelled Albumin/Globulin Ratio Cancelled Lipase Cancelled Assessment & Plan Assessment & Plan narrative: Patient is a woman with marked distention of her colon in the left abdomen. The portion of the colon involved is filled with gas. No obvious enlargement of her stomach. CT is pending. Placed on pain films it appears the patient has a volvulus. Would recommend emergent colonic decompression. If successful we may be able to do a bowel prep in resection or she can return to [place] for same. If unsuccessful or if ischemia is present I rated discussed with her the possibility of a exploration resection and co lostomy. I would not proceed without however until I was certain it was necessary.
[2019-01-24 21:40] VITALS: BP 164/87; PULSE 91; TEMP 36.9; O2SAT 100
[2019-01-24 21:41] LABS: Bacteria Urine None Seen; RBC Urine None Seen (0-5/HPF); WBC Urine None Seen (0-5/HPF)
[2019-01-24 21:48] LABS: Culture Indicated Urine Cult Not Indicated; Hyaline Casts Urine 1-5/LPF
[2019-01-24 22:07] VITALS: BMI 21.7
[2019-01-24] MEDS: PIPERACILLIN-TAZO 3.375 GM/50 ML FROZ.PIGGY IV (22:20)
--- NOTE | 2019-01-24 22:41 | SUR.OPER ---
Supine on padded OR bed, head on pillow, arms secured on padded arm boards at <90 degrees abduction, legs uncrossed, safety belt at thigh, tape over blanket over lower legs.
[2019-01-25] VITALS (35 sets, daily range): BP systolic 76–152; BP diastolic 31–82; PULSE 72–131; RESP 10–29; TEMP 37.1–37.6; O2SAT 94–99; BMI 23.3
--- NOTE | 2019-01-25 | PATH_ITS ---
[facility] Accession Number: [id number] . 01 Material submitted: . colon - RIGHT COLON . 02 Diagnosis: Right Colon, Resection (Two Segments): 1. Marked transmural ischemia and hemorrhage. 2. Margins in both segments appear viable. 3. Serositis. 4. Appendix with ischemia-type changes. 5. No evidence of neoplasia or malignancy. MRV/01/30/2019 . 02 Electronically signed: . Aziza Salinas MD, Pathologist NPI- [id number] . 01 Gross description: . Received in formalin, labeled right colon, are two colon segments. Segment #1 consists of the terminal ileum (length-6.5 cm, proximal diameter-1.7 cm), ileocecal valve, cecum and ascending colon (length-18.3 cm, distal diameter-5.8 cm), and attached appendix (length-7.8 cm, diameter-0.7 cm). The resection margins are received stapled. The entire segment is red-brown smooth and shiny with a minimal amount of normal mucosal folds. No nodules, masses or lesions are identified. The resection margins are inked black. Section code: (A1) proximal resection margin, longitudinal treasury representative; (A2) distal resection margin, longitudinal treasury representative; (A3-A6) treasury representative serial sections submitted proximal to distal; (A7) appendix, treasury representative. . Segment #2 (length-7.5 cm, diameter #1-3.8 cm, diameter #2-4.8 cm) cannot be oriented. The resection margins are received stapled. The entire segment is edematous and has topete-barber smooth shiny mucosa. No nodules, masses or lesions are identified. The resection margins are inked black. Section code: (A8) resection margin #1, longitudinal treasury representative; (A9)resection margin #2, treasury representative longitudinal section; (A10) treasury representative serial sections. ([id number]) /MRV . 02 Pathologist provided ICD-10: K56.2 . 02 CPT . 236184 Performed at: 01 [facility] [address] [id number] MD Sanford Durbin MD Phone: [phone] Performed at: 02 [facility] [address] [place], [place] [id number] MD Aziza Salinas MD Phone: [phone]
[2019-01-25] MEDS: LACTATED RINGERS 1,000 ML 42 ML IV (00:10)
--- NOTE | 2019-01-25 01:10 | SUR.PHASEI ---
Pt assisted to sit on the edge of the bed for epidural insertion. Reported abd cramping. Pt drowsy
--- NOTE | 2019-01-25 01:18 | PM.OP.1 ---
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 Surgeon: Sorin Albarado Click Yes if Unassisted: Yes Anesthesia Type: General Operative Notes Findings: Did cecum. Colon was to the hepatic flexure and the distal small bowel was necrotic as well. There was no spillage of contents however. Closure Type: primary Specimen(s): other (Right colon in 2 pieces) Prosthetic devices, grafts, tissues, transplants, or devices: None Applied: catheter (Salinas) Estimated Blood Loss (mL): 250 Blood products transfused: none Procedure in detail: The patient was taken emergently to the operating room. She underwent general endotracheal anesthesia. A [place] catheter was placed. She was prepped and draped in the usual fashion. Vertical midline incision was made from the upper abdomen to the lower abdomen. It was carried in the peritoneal cavity. I immediately encountered necrotic hemorrhagic intestine. The volvulus of the cecum was readily apparent. The intestine was huge and I had to extend my incision slightly to deliver it into the wound. Because of the necrosis I kept the intestine torsed and identified its blood supply. I ligated it in situ without division of the vessels using 0 silk ties. Once I was satisfied the blood supply had been divided I under I chose a point on the colon that was viable and divided it using a ANNETTE stapling device. This allowed me to on torse the intestine so I could readily identify the terminal ileum. Once I would occur blush this it was apparent that the distal portion was necrotic as well. I quickly chose a point of viable small bowel and divided across it with a ANNETTE. I then quickly divided the mesentery between clamps and tied with 200 and 0 silk ties. Once the mesentery was completely divided the specimen was removed. The transverse colon was very floppy and I decided to remove a portion of it to reduce that risk of that also kristen Carter. Additional blood supply was taken to the transverse colon near its wall. The colon was then divided using a ANNETTE stapler. I then suction and hemorrhagic fluid out of the abdomen irrigated and suctioned it free. I decided to create an end of small bowel to side of transverse colon anastomosis. The bowel easily came together without tension and there was no ischemia Anna. I placed the back wall of seromuscular interrupted 3 0 silks. Addendum pie and bowel clamps and opened the end of the small bowel and the side of the colon principally using cautery. I then created an inner suture line using a running 3 0 Vicryl in a [place] construction. The bowel clamps were removed at the completion of this layer and then I finished the anterior seromuscular closure with interrupted 3 0 silk. I also inverted the suture line of the and end of the transverse colon this was done by using seromuscular 3 0 silks. The anastomosis was widely patent and gas and solid Material passed easily across it and there was no evidence of leak on testing. with the anastomosis complete I copiously irrigated the abdomen and meticulously suctioned all the material out. The abdomen was dried up. There was no ongoing bleeding. The midline fascia was closed with a running 1. Maxon with occasional interrupted 1. Vicryl. The subcu was irrigated and erik were used to close the skin. The patient was awakened and taken to the recovery room extubated and in good condition. Plan is to place an epidural catheter in the recovery room. Complications: none Condition: stable Disposition: PACU
--- NOTE | 2019-01-25 01:27 | SUR.PHASEI ---
Dr. Winters notified by dropping to , vvo to open IV fluids, which was done. HOB lowered also.
--- NOTE | 2019-01-25 01:36 | PM.PROC.1 ---
Procedures Date/Time Date of procedure: 01/25/19 Time of procedure: 01:10 General Procedure description: Thoracic epidural for post-op pain after open right hemicolectomy performed by Dr. Albarado, general surgery. TEP was performed in PACU after colectomy operation. Patient was positioned sitting upright with ASA monitoring. Risks and benefits of procedure were discussed with patient prior to operation. Skin was prepped with chlorhexidine and allowed to fully dry. Sterile drapes, mask, hat and gloves used for sterile procedure. 1% lidocaine skin wheal was made at T8-9 level. Using an 18ga 2nd Watch needle, loss of resistance with sterile saline was used to locate epidural space. LAURA @ 5 cm at skin. Catheter was threaded without parathesias. Placed to 10cm at skin. Test dose of 1.5% lido with epi was given, 3 mL. No test dose reaction noted. Dressed with large tegaderm and medipore tape. A bolus of 100mcg fentanyl and 4ml of 0.25% bupivicaine was given. For infusion, a 0.125% bupivicaine + 2 mcg/ml fentanyl was ordered to run at 6 mL per hour. Patient tolerated procedure well. Pain resided from 10 to 5 after 5 minutes post epidural. Patient will transfer from PACU to ICU for epidural management and colectomy recovery.
--- NOTE | 2019-01-25 01:43 | P.PCN_ITS ---
Procedures Date/Time Date of procedure: 01/25/19 Time of procedure: 01:10 General Procedure description: Thoracic epidural for post-op pain after open right hemicolectomy performed by Dr. Albarado, general surgery. TEP was performed in PACU after colectomy operation. Patient was positioned sitting upright with ASA monitoring. Risks and benefits of procedure were discussed with patient prior to operation. Skin was prepped with chlorhexidine and allowed to fully dry. Sterile drapes, mask, hat and gloves used for sterile procedure. 1% lidocaine skin wheal was made at T8-9 level. Using an 18ga DiBcom needle, loss of resistance with sterile saline was used to locate epidural space. LAURA @ 5 cm at skin. Catheter was threaded without parathesias. Placed to 10cm at skin. Test dose of 1.5% lido with epi was given, 3 mL. No test dose reaction noted. Dressed with large tegaderm and medipore tape. A bolus of 100mcg fentanyl and 4ml of 0.25% bupivicaine was given. For infusion, a 0.125% bupivicaine + 2 mcg/ml fentanyl was ordered to run at 6 mL per hour. Patient tolerated procedure well. Pain resided from 10 to 5 after 5 minutes post epidural. Patient will transfer from PACU to ICU for epidural management and colectomy recovery.
--- NOTE | 2019-01-25 01:52 | SUR.PHASEI ---
Dr. Winters at bedside, monitoring bp. Notified temp 99.6. Report called to
--- NOTE | 2019-01-25 02:16 | SUR.PHASEI ---
Pt's bp 106/55 in supine position. Pt transferred to ICU, report given to Nayla. VS stable. IV saline locked. Abd drsg cdi. Epidural infusing at 6ml/hr, drsg checked with rn. Belongings bag with patient. [place] patent with clear, yellow urine.
[2019-01-25] MEDS: LACTATED RINGERS 1,000 ML 125 ML IV ×2 (02:30→10:59)
[2019-01-25] MEDS: EPI EPIDURAL ×3 (02:41→15:38)
[2019-01-25] MEDS: BUPIV 0.125% EPIDURAL ×3 (02:41→15:38)
[2019-01-25] MEDS: FENT 2 MCG/ML EPIDURAL ×3 (02:41→15:38)
[2019-01-25 05:13] LABS: Add Manual Diff / Slide Review NO; Basophils Absolute Auto 0 /uL (0-100); Basophils Percent Auto 0.3 % (0-2); Eosinophils Absolute Auto 0 /uL (0-450); Hematocrit 37.8 % (36-46); Hemoglobin 13.2 g/dL (12.0-16.0); Lymphocytes Absolute Auto 500 /uL (1100-4500); Lymphocytes Percent Auto 3.9 % (25-40); Mean Corpuscular Hemoglobin 32.4 PG (26-34); Mean Corpuscular Volume 92.5 fL (80-100); Monocytes Absolute Auto 800 /uL (0-900); Monocytes Percent Auto 6.4 % (3-14); Neutrophils Absolute Auto 11900 /uL (1500-7000); Neutrophils Percent Auto 89.4 % (50-75); Platelet Count 213 X10^3/uL (150-400); Red Blood Cell Count 4.09 X10^6/uL (4.0-5.2); Red Cell Distribution Width 13.1 % (11.6-14.8); White Blood Cell Count 13.3 X10^3/uL (4.5-11.0)
[2019-01-25 05:23] LABS: Alanine Aminotransferase 29 IU/L (9-52); Albumin 3.1 g/dL (3.5-5.0); Albumin Globulin Ratio 1.4 (1.0-2.8); Alkaline Phosphatase 53 U/L (38-126); Aspartate Aminotransferase 26 IU/L (14-36); Bilirubin Total 0.8 mg/dL (0.2-1.3); Blood Urea Nitrogen 14 mg/dL (7-17); Calcium 8.5 mg/dL (8.4-10.2); Carbon Dioxide 22 mmol/L (22-32); Chloride 109 mmol/L (98-107); Estimated Glomerular Filt Rate > 60.0 mL/min (>60); Globulin 2.2 g/dL (1.7-4.1); Glucose 167 mg/dL (80-110); HEMOLYSIS < 15 (0-50); Magnesium 1.7 mg/dL (1.6-2.3); Potassium 3.9 mmol/L (3.4-5.1); Sodium 139 mmol/L (137-145); Total Protein 5.3 g/dL (6.3-8.2)
[2019-01-25] MEDS: PIPERACILLIN-TAZO 3.375 GM/50 ML FROZ.PIGGY IV ×4 (05:49→23:43)
[2019-01-25] MEDS: GABAPENTIN 300 MG CAPSULE PO ×2 (08:27→19:55)
[2019-01-25] MEDS: TIMOLOL 0.5% OPHTH 1 DROPS EYE-LEFT (08:27)
--- NOTE | 2019-01-25 11:54 | PM.PN.1 ---
Subjective Date Patient Seen: 01/25/19 Time Patient Seen: 10:55 Interval history: 63yo F POD#0 s/p emergent right hemicolectomy for cecal volvulous. Gangrenous colon with no perforation. Doing well this morning but quite tired as she is only a few hours out of surgery. Pain is controlled with epidural. Good UOP in [place], has not been out of bed yet. Marley sips of clears with no nausea. She is understandably upset and stressed about being on vacation while this is occurring and she and are concerned for getting home. Exam Vital Signs (past 8 hours): - 01/25/19 04:02 01/25/19 05:43 01/25/19 07:34 Temperature 99.3 F Pulse Rate 98 H 96 H Respiratory Rate 19 20 Blood Pressure 98/54 L 102/54 L Pulse Oximetry 95 96 01/25/19 08:00 Temperature Pulse Rate 98 H Respiratory Rate 20 Blood Pressure 104/52 L Pulse Oximetry 97 Oxygen Delivery Method Room Air Narrative Exam Narrative: AAO, NAD, female of healthy weight EOMI, MMM, no scleral icterus unlabored RA soft, nd, expected soreness, dressing clean and intact [place] cath in place MAEW; SCDs visible skin dry and intact Objective Labs Result Diagrams: 01/25/19 04:46 01/25/19 04:46 Labs: Laboratory Results - last 24 hr 01/24/19 01/24/19 01/24/19 19:35 19:35 19:35 WBC 19.5 H RBC 4.92 Hgb 15.5 Hct 46.2 H MCV 93.9 MCH 31.6 MCHC 33.6 RDW 13.5 Plt Count 304 Neut % (Auto) 85.9 H Lymph % (Auto) 5.3 L [place] % (Auto) 8.5 Eos % (Auto) 0.1 L Baso % (Auto) 0.2 Neut # (Auto) 06680 H Lymph # (Auto) 1000 L [place] # (Auto) 1700 H Eos # (Auto) 0 Baso # (Auto) 0 PT 11.0 INR 1.0 APTT 28 Sodium 141 Potassium 3.8 Chloride 104 Carbon Dioxide 22 BUN 20 H Creatinine 0.70 Estimated GFR > 60.0 BUN/Creatinine Ratio 28.6 H Glucose 163 H Calcium 10.0 Magnesium Total Bilirubin 0.8 AST 35 ALT 37 Alkaline Phosphatase 98 Total Protein 7.5 Albumin 4.8 Globulin 2.7 Albumin/Globulin Ratio 1.8 Lipase 55 Urine RBC Urine WBC Urine Bacteria Hyaline Casts Ur Culture Indicated? Nasal Screen MRSA (PCR) 01/24/19 01/24/19 01/24/19 19:35 19:35 21:00 WBC Cancelled RBC Cancelled Hgb Cancelled Hct Cancelled MCV Cancelled MCH Cancelled MCHC Cancelled RDW Cancelled Plt Count Cancelled Neut % (Auto) Cancelled Lymph % (Auto) Cancelled [place] % (Auto) Cancelled Eos % (Auto) Cancelled Baso % (Auto) Cancelled Neut # (Auto) Cancelled Lymph # (Auto) Cancelled [place] # (Auto) Cancelled Eos # (Auto) Cancelled Baso # (Auto) Cancelled PT INR APTT Sodium Cancelled Potassium Cancelled Chloride Cancelled Carbon Dioxide Cancelled BUN Cancelled Creatinine Cancelled Estimated GFR Cancelled BUN/Creatinine Ratio Cancelled Glucose Cancelled Calcium Cancelled Magnesium Total Bilirubin Cancelled AST Cancelled ALT Cancelled Alkaline Phosphatase Cancelled Total Protein Cancelled Albumin Cancelled Globulin Cancelled Albumin/Globulin Ratio Cancelled Lipase Cancelled Urine RBC None seen Urine WBC None seen Urine Bacteria None seen Hyaline Casts 1-5/lpf Ur Culture Indicated? Cult not indicated Nasal Screen MRSA (PCR) 01/25/19 01/25/19 01/25/19 02:10 04:46 04:46 WBC 13.3 H RBC 4.09 Hgb 13.2 Hct 37.8 MCV 92.5 MCH 32.4 MCHC 35.0 RDW 13.1 Plt Count 213 Neut % (Auto) 89.4 H Lymph % (Auto) 3.9 L [place] % (Auto) 6.4 Eos % (Auto) 0.0 L Baso % (Auto) 0.3 Neut # (Auto) 99944 H Lymph # (Auto) 500 L [place] # (Auto) 800 Eos # (Auto) 0 Baso # (Auto) 0 PT INR APTT Sodium 139 Potassium 3.9 Chloride 109 H Carbon Dioxide 22 BUN 14 Creatinine 0.70 Estimated GFR > 60.0 BUN/Creatinine Ratio 20.0 Glucose 167 H Calcium 8.5 Magnesium 1.7 Total Bilirubin 0.8 AST 26 ALT 29 Alkaline Phosphatase 53 Total Protein 5.3 L Albumin 3.1 L Globulin 2.2 Albumin/Globulin Ratio 1.4 Lipase Urine RBC Urine WBC Urine Bacteria Hyaline Casts Ur Culture Indicated? Nasal Screen MRSA (PCR) Negative for mrsa Assessment & Plan Assessment & Plan narrative: - s/p emergent R hemicolectomy with primary ileocolic anastomosis for cecal volvulous with necrotic bowel --> doing well overall, quite tired this AM as only hours out of surgery --> epidural and adjunctive pain control per anesthesia, appreciate help --> keep [place] for today, good UOP --> PT eval to mobilize with epidural --> sips of clears for now, will advance to full tray clears when pt feeling more up to it --> starting lovenox this evening, will stop night prior to planned epidural removal - pt and understandably worried about plans for travel home, will table for now and revisit as she improved Quality VTE Deep Vein Thrombosis/Pulmonary Embolism Present on Admission: Yes
--- NOTE | 2019-01-25 14:00 | PT.IIE ---
Current Diagnoses Volvulus (01/24/19) Surgery Performed Operation Date: 01/24/19 21:45 <No data on this case meets the specified criteria> Operation Date: 01/24/19 22:15 Actual Procedures p RIGHT HEMICOLECTOMY - Sorin Albarado MD Surgical History (Last Reviewed 01/25/19 @ 03:37 by Vasile Sawant DO) History of (Resolved) Medical History (Last Reviewed 01/25/19 @ 03:37 by Vasile Sawant DO) Elevated cholesterol (Chronic) Physical Therapy Inpatient Evaluation/Re-Eval M1 PT/OT-IP Prior Functional Status Start: 01/25/19 15:19 Freq: NEEDED Status: Active Protocol: Document 01/25/19 14:00 AB (Rec: 01/25/19 16:05 AB [id number]) Medical Review Prior Functional Status Medical History Reviewed Yes Communication able to make needs known Mobility and Gait pt stated that she is independent with all mobilities and ambulation without AD Prior Functional Level (Other details) Pt lives in [place] and is in here for a vacation. pt wants to be able to fly back to [place] on ( December). Pt does not has a specific place to stay if flying back to [place] is not feasible. pt stated that she might stay on a hotel but does not have a definite plan. Social History Household Members spouse Living Arrangements House Additional Social History Comment Did not obtain home set-up. Pt lives in [place]. Pt wants to fly back home on sunday but does not have a specific d/c plan if she will not be able fly back at that time. M2 PT-IP Current Condition Start: 01/25/19 15:19 Freq: NEEDED Status: Active Protocol: Document 01/25/19 14:00 AB (Rec: 01/25/19 16:05 AB [id number]) Physical Therapy Current Condition Current Condition Evaluation Date 01/25/19 Treatment Diagnosis s/p R hemicolectomy; difficulty in walking Onset Date 01/24/19 Precautions Abdominal Surgery Precautions Log Roll Lifting Restrictions Gait Belt above Incisional Area M3 PT-IP Subjective Start: 01/25/19 15:19 Freq: NEEDED Status: Active Protocol: Document 01/25/19 14:00 AB (Rec: 01/25/19 16:05 AB [id number]) Subjective Physical Therapy Visit Type Type Initial Evaluation Visit Start Time 14:00 Visit Stop Time 14:38 Total Visit Minutes 38 Number of IDENTIFICATION OFFICER Visits 0 Physical Therapy Visit Comments Patient Comments pt agreeable to do PT Patient Goals wants to fly back to [place] on Sunday Therapy Pain Assessment Pain When Pain Assessed At Rest Pain Present Pain Present Pain Reported Location abdomen Intensity 4 Scale Used Numeric (1 - 10) Pain Management Techniques Modification of Treatment M4 PT-IP Mobility and Gait Start: 01/25/19 15:19 Freq: NEEDED Status: Active Protocol: Document 01/25/19 14:00 (Rec: 01/25/19 16:05 [id number]) PT-Bed Mobility Assessment Rolling Level of Assist Minimal Assistance Supine to Sit Supine to Sit Moderate Assistance Sit to Supine Sit to Supine Maximum Assistance PT-Transfer Assessment Sit to and From Stand Sit to and from Stand Moderate Assistance Maximum Assistance 1 Person Assistance Equipment Transfer Assistive Device Gait Belt Front Wheeled Walker Orthotic/Prosthetic Devices or Brace: No Comments Mobility Comments BP: 116/68 O2 sat 94% pt required max A for supine to sit. c/o lightheadedness after initial sitting but dissipated after a few seconds of sitting on EOB. pt was able to sit on EOB SBA. pt completed sit to stand mod to max A and max cues. pt with increase LE leaning on bed for support during standing. was able to take ~ 5 steps using FWW mod A to max A and max cues sideways towards HOB. pt requested to lay back in bed. completed sit to supinemax A and max cues for log roll. required assist to elevate BLE up in bed and for positioning . call light and table placed within reach. Gait Assessment Gait Gait Assistance Required: Moderate Assistance Maximum Assistance Distance (Feet) 2 Able to Maintain Weight Bearing Status Yes During Gait Assistive Devices Assistive Device Gait Belt Front Wheeled Walker Orthotic/Prosthetic Devices or Brace: No Gait Deviations General Gait Pattern Decreased Stride Length Decreased Feet Clearance Factors Limiting Gait Function Factors Limiting Gait Function Decreased Activity Tolerance Decreased Strength Limited Range of Motion Pain Poor Balance Comments Gait Comments able to take ~ 5 steps towards HOB using FWW mod to max A and max cues PT-Balance Assessment Sitting Balance and Reactions Static Sitting Balance Ability Good Dynamic Sitting Balance Ability Good Standing Balance and Reactions Static Standing Balance Ability Fair Dynamic Standing Balance Ability Poor Device Used FWW M5 PT-IP Objective Assessments Start: 01/25/19 15:19 Freq: NEEDED Status: Active Protocol: Document 01/25/19 14:00 AB (Rec: 01/25/19 16:05 AB [id number]) Orientation Orientation/Cognition Level of Alertness Alert Orientation Name Age Place Situation Language Function Ability No Deficits Noted Safety Awareness Understands Safety Issues Memory Description Short Term Impaired Gross Range of Motion Lower Extremity ROM Assessment Within Functional Limits Strength Lower Extremity Strength Assessment Within Functional Limits Coordination Assessment Gross Coordination Gross Coordination WNL Sensation Assessment Sensation Gross Sensation WNL Muscle Tone Muscle Tone WNL Yes M6 PT-IP Treatment Start: 01/25/19 15:19 Freq: NEEDED Status: Active Protocol: Document 01/25/19 14:00 AB (Rec: 01/25/19 16:05 AB [id number]) Physical Therapy Treatment Education Education Provided Precautions Safety M7 PT-IP Assessment and Plan Start: 01/25/19 15:19 Freq: NEEDED Status: Active Protocol: Document 01/25/19 14:00 AB (Rec: 01/25/19 16:05 AB [id number]) PT Summary Assessment and Plan Potential Rehabilitation Potential Good Status of Condition at Evaluation Evolving Summary Impairments Pain ROM Strength Balance Bed Mobility Transfers Gait Activity Tolerance Assessment Summary pt requiring mod to max A with mobility and unable to tolerate much activity. d/c plan depending on progress. pt just had surgery today and does not have a definitive plan if she is not able to fly back to [place] on sunday . pt's spouse will be able to assist pt. will continue to assess progress. Goals Bed Mobility Goal Standby Assistance Transfer Goal Standby Assistance Front Wheeled Walker Gait Goal Standby Assistance Front Wheel Walker Gait Distance 100 Other Goals improve ambulation without AD ~ 200 ft SBA up/down steps using 1 rail ~ 6 steps SBA Days to Meet Goals 10 Frequency of Treatment Frequency Of Treatment Once a Day Treatment Plan Physical Therapy Treatment Plan Bed Mobility Training Transfer Training Gait Training Therapeutic Exercise Balance Retraining Post Op Education Discharge Planning Hot or Cold Pack Neuromuscular Re-ed Coordination Retraining Manual Therapy Other Recommendations and Next Treatment ambulation Focus Recommendations To Nursing Amount of Assist Needed 2 Person Assist Discharge Recommendations PT Discharge Recommendations Home with Assistance SNF Rehab Other Discharge Recommendations depending on progress SNF vs home with assist Equipment Needed for Home Before FWW if not safe without AD Discharge
[2019-01-25] MEDS: DEXTROSE 5%-0.45% NS 1,000 ML 100 ML IV (15:36)
[2019-01-25] MEDS: ENOXAPARIN 40 MG/0.4 ML SYRINGE SUBCUT (18:13)
[2019-01-25] MEDS: HYDROMORPHONE 2 MG INJ 1 MG IV (18:18)
[2019-01-26] VITALS (7 sets, daily range): BP systolic 90–130; BP diastolic 56–75; PULSE 53–101; RESP 14–19; TEMP 36.3–37.6; O2SAT 94–97
[2019-01-26] MEDS: DEXTROSE 5%-0.45% NS 1,000 ML 100 ML IV (01:44)
[2019-01-26] MEDS: EPI EPIDURAL ×2 (05:11→22:35)
[2019-01-26] MEDS: FENT 2 MCG/ML EPIDURAL ×2 (05:11→22:35)
[2019-01-26] MEDS: BUPIV 0.125% EPIDURAL ×2 (05:11→22:35)
[2019-01-26] MEDS: PIPERACILLIN-TAZO 3.375 GM/50 ML FROZ.PIGGY IV ×4 (05:12→23:44)
[2019-01-26] MEDS: ENOXAPARIN 40 MG/0.4 ML SYRINGE SUBCUT (08:10)
[2019-01-26] MEDS: TIMOLOL 0.5% OPHTH 1 DROPS EYE-LEFT (08:11)
[2019-01-26] MEDS: GABAPENTIN 300 MG CAPSULE PO ×2 (08:11→20:05)
--- NOTE | 2019-01-26 08:52 | CM.DANOTE ---
Addendum entered by Kaye Espinoza LPN 01/26/19 15:51: Met with pt and her now as planned. Introduced self and role. Pt does note that she is glad to be improving, this just was not on her vacation plan. She also says that her BC is primary as she is working but she also has Medicare A. 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 Her is also an RN but retired. She says she forgot to provide her Medicare A card info the the admitting people when she first arrived. Agreed to update the [facility] via [facility] email process so that they can follow up on this tomorrow. Assured pt that DCP team would be following to assist with any d/c needs that may arise as she continues her recovery. Original Note: Discharge Planning/Care Management DCP: assessment: initiated: late entry for 01/25: Case was received 01/25 and discussed in Team Rounds. Pt is a 63 year old female who admitted night of 01/24 with severe abdominal pain to care of [facility]: Dr. Albarado. Payer: [facility] out of [facility]. Pt was taken emergently to surgery by Dr. 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 Procedure: 01/25 0100: open R hemicolectomy. Thoracic epidural placed after surgery for pain management and pt sent to ICU setting. Checked in yesterday01/25 with SHRUTHI Toth; pt was sleeping and noted no reason to disturb her. Maurizio was in process of changing hotels: his cell: [phone]. P: discuss today/01/26 in Team Rounds and meet pt for introduction of self and role. It is noted that pt are wishing to return to [place] as soon as possible and had wanted to fly back on 01/29. CM Discharge Assessment Start: 01/26/19 08:49 Freq: Status: Active Protocol: Document 01/26/19 08:49 ITV (Rec: 01/26/19 08:52 ITV [id number]) Discharge Planning Assessment Advance Directives? No Advance Directives on File No History Provided By Patient Family Member Medical Record Prior Living Arrangements House Comment lives in [place]. here on vacation ([facility]) with Maurizio, staying in a hotel in [place] now. Household Members spouse Independent with ADL's Yes Is patient alert and oriented? Yes Review Status In Process
--- NOTE | 2019-01-26 10:23 | PM.PN.1 ---
Subjective Date Patient Seen: 01/26/19 Time Patient Seen: 09:50 Interval history: Doing fairly well, pain controlled after epidural bolus yesterday. Tearful this morning, upset about missing her vacation and family. Was up a bit with PT yesterday. Drinking good amount of clears but does not like much of the tray. No nausea, no distension, no flatus yet. Exam Vital Signs (past 8 hours): Oxygen Delivery Method Room Air Narrative Exam Narrative: AAO, NAD, female of healthy weight EOMI, MMM, no scleral icterus unlabored RA soft, nd, expected ttp, inc c/d/i with scant dried drainage MAEW visible skin dry and intact Objective Labs Result Diagrams: 01/25/19 04:46 01/25/19 04:46 Assessment & Plan Assessment & Plan narrative: - dressing removed - to FLD, cautioned for slow intake --> will HLIV today if adequate intake - mobilize with PT - appreciate anesthesia for pain med and epidural mgmt - will remove olivier today if moving well - SCDs, lovenox Quality VTE Deep Vein Thrombosis/Pulmonary Embolism Present on Admission: Yes
[2019-01-26] MEDS: HYDROMORPHONE 2 MG INJ 1 MG IV (12:36)
--- NOTE | 2019-01-26 13:46 | PT.IPTN ---
Current Diagnoses Volvulus (01/24/19) Surgery Performed Operation Date: 01/24/19 21:45 <No data on this case meets the specified criteria> Operation Date: 01/24/19 22:15 Actual Procedures p RIGHT HEMICOLECTOMY - Sorin Albarado MD Physical Therapy Treatment Note M2 PT-IP Current Condition Start: 01/25/19 15:19 Freq: NEEDED Status: Active Protocol: Document 01/25/19 14:00 AB (Rec: 01/25/19 16:05 AB [id number]) Physical Therapy Current Condition Current Condition Evaluation Date 01/25/19 Treatment Diagnosis s/p R hemicolectomy; difficulty in walking Onset Date 01/24/19 Precautions Abdominal Surgery Precautions Log Roll Lifting Restrictions Gait Belt above Incisional Area M3 PT-IP Subjective Start: 01/25/19 15:19 Freq: NEEDED Status: Active Protocol: Document 01/26/19 13:00 CLB (Rec: 01/26/19 13:46 CLB [id number]) Subjective Physical Therapy Visit Type Type Treatment Note Visit Start Time 13:00 Visit Stop Time 13:30 Total Visit Minutes 30 Notes RN present during tx. Number of POLISHER APPRENTICE Visits 1 Physical Therapy Visit Comments Patient Comments pt agreeable to do PT Therapy Pain Assessment Pain When Pain Assessed At Rest Pain Present Pain Present Pain Reported Location abdomen Intensity 2 Scale Used Numeric (1 - 10) Pain Management Techniques Modification of Treatment M4 PT-IP Mobility and Gait Start: 01/25/19 15:19 Freq: NEEDED Status: Active Protocol: Document 01/26/19 13:00 CLB (Rec: 01/26/19 13:46 CLB [id number]) PT-Bed Mobility Assessment Rolling Level of Assist Minimal Assistance Supine to Sit Supine to Sit Moderate Assistance Scooting Scooting to Edge of Bed Minimal Assistance PT-Transfer Assessment Sit to and From Stand Sit to and from Stand Minimal Assistance 1 Person Assistance Equipment Transfer Assistive Device Gait Belt Front Wheeled Walker Orthotic/Prosthetic Devices or Brace: No Transfers Transfer Destination Chair Transfer Technique Stand Step Pivot Transfer Ability Level of Assist Moderate Assistance 1 Person Assistance Comments Mobility Comments BP in sitting 130/75, Pt required Mod A supine-sit with c/o lightheadedness and nausea. Pt sat on EOB for several minutes before dizziness and nausea subsided. Pt then stood with Min A, pt again felt dizzy and nauseous. Pt did not feel as though she could walk but wanted to transfer to chair while stating I know I need to do something other than lay in bed. RN assisted with lines. M5 PT-IP Objective Assessments Start: 01/25/19 15:19 Freq: NEEDED Status: Active Protocol: Document 01/25/19 14:00 AB (Rec: 01/25/19 16:05 AB [id number]) Orientation Orientation/Cognition Level of Alertness Alert Orientation Name Age Place Situation Language Function Ability No Deficits Noted Safety Awareness Understands Safety Issues Memory Description Short Term Impaired Gross Range of Motion Lower Extremity ROM Assessment Within Functional Limits Strength Lower Extremity Strength Assessment Within Functional Limits Coordination Assessment Gross Coordination Gross Coordination WNL Sensation Assessment Sensation Gross Sensation WNL Muscle Tone Muscle Tone WNL Yes M6 PT-IP Treatment Start: 01/25/19 15:19 Freq: NEEDED Status: Active Protocol: Document 01/25/19 14:00 AB (Rec: 01/25/19 16:05 AB [id number]) Physical Therapy Treatment Education Education Provided Precautions Safety M7 PT-IP Assessment and Plan Start: 01/25/19 15:19 Freq: NEEDED Status: Active Protocol: Document 01/26/19 13:00 CLB (Rec: 01/26/19 13:46 CLB [id number]) PT Summary Assessment and Plan Summary Assessment Summary Pt required less assist with bed mobility and sit-stand. Pt continues with low activity tolerance but was able to take small steps to pivot to chair . Pt was left in chair with all needs within reach, RN and present. Goals Bed Mobility Goal Standby Assistance Transfer Goal Standby Assistance Front Wheeled Walker Gait Goal Standby Assistance Front Wheel Walker Gait Distance 100 Other Goals improve ambulation without AD ~ 200 ft SBA up/down steps using 1 rail ~ 6 steps SBA Days to Meet Goals 10 Frequency of Treatment Frequency Of Treatment Once a Day Treatment Plan Physical Therapy Treatment Plan Bed Mobility Training Transfer Training Gait Training Therapeutic Exercise Balance Retraining Post Op Education Discharge Planning Hot or Cold Pack Neuromuscular Re-ed Coordination Retraining Manual Therapy Other Recommendations and Next Treatment ambulation Focus Recommendations To Nursing Amount of Assist Needed 2 Person Assist Discharge Recommendations PT Discharge Recommendations Home with Assistance SNF Rehab Other Discharge Recommendations depending on progress SNF vs home with assist Equipment Needed for Home Before FWW if not safe without AD Discharge
--- NOTE | 2019-01-26 14:42 | PC.NURSE ---
Received in bed, somnolent but arousable. VSS. IVF infusing per order. Epidural infusion 6ml/hr. Site C/D/I. Pain well-controlled, but c/o abdominal soreness. Sp02>/90% on RA. Lungs CTA. Encouraging IS. Abdominal surgical incision dressing removed per surgery. Staple line C/D/I, no drainage noted. Abd pad in place for pt. comfort. [place] intact to DD; UO adequate. OOB to chair with PT assist. Transient wave of nausea and dizziness. Discussed plan of care and medications with pt. and spouse.
--- NOTE | 2019-01-27 03:10 | PC.NURSE ---
Addendum entered by Paige Zheng R.N. 01/27/19 06:16: 0600- Per MD orders epidural turned into 'off' mode. Original Note: 2300- Assumed care of pt. Admit for cecal volvulus; POD#1 R hemicolectomy. Midline incision in place, dressing changed on 01/26. Epidural in place running as ordered. Verbal/written orders to shut this off at 0600. D5 1/2 NS running as ordered, and olivier catheter in place. Pt tolerating full liquid diet, SR on telemetry. She states her pain is controlled at this time. 0300- Patient sleeping, no changes at this time.
[2019-01-27 05:20] VITALS: BP 107/57; PULSE 87; RESP 18; TEMP 36.8; O2SAT 97
[2019-01-27] MEDS: PIPERACILLIN-TAZO 3.375 GM/50 ML FROZ.PIGGY IV ×4 (05:22→23:52)
[2019-01-27 08:00] VITALS: BP 115/66; PULSE 81; RESP 12; O2SAT 96
[2019-01-27] MEDS: ONDANSETRON 4 MG/2 ML INJ IV ×2 (08:25→11:59)
[2019-01-27] MEDS: GABAPENTIN 300 MG CAPSULE PO ×2 (08:26→19:27)
[2019-01-27] MEDS: TIMOLOL 0.5% OPHTH 1 DROPS EYE-LEFT (08:30)
[2019-01-27] MEDS: HYDROMORPHONE 2 MG INJ 1 MG IV ×2 (08:31→10:11)
[2019-01-27] MEDS: DEXTROSE 5%-0.45% NS 1,000 ML 50 ML IV (10:28)
--- NOTE | 2019-01-27 10:47 | CM.DPC ---
DCP Cont: Met with patient and . Introduced self and role. Confirmed that patient and are from [place]. Stated that they are visiting here on [place] with 's father. Patient stated, she is normally healthy, and had not experienced anything like this before. She does have a primary doctor back home. Put name of this maintenance planner's name on her white board in her room, if any questions at discharge. P: DCP to continue to follow closely, and be available for any questions. Patient should be able to go home when she is medically stable. Marina Molina RN/Restaurant Line Cook
--- NOTE | 2019-01-27 11:03 | PT.IPTN ---
Current Diagnoses Volvulus (01/24/19) Surgery Performed Operation Date: 01/24/19 21:45 <No data on this case meets the specified criteria> Operation Date: 01/24/19 22:15 Actual Procedures p RIGHT HEMICOLECTOMY - Sorin Albarado MD Physical Therapy Treatment Note M2 PT-IP Current Condition Start: 01/25/19 15:19 Freq: NEEDED Status: Active Protocol: Document 01/25/19 14:00 AB (Rec: 01/25/19 16:05 AB [id number]) Physical Therapy Current Condition Current Condition Evaluation Date 01/25/19 Treatment Diagnosis s/p R hemicolectomy; difficulty in walking Onset Date 01/24/19 Precautions Abdominal Surgery Precautions Log Roll Lifting Restrictions Gait Belt above Incisional Area M3 PT-IP Subjective Start: 01/25/19 15:19 Freq: NEEDED Status: Active Protocol: Document 01/27/19 10:10 CLB (Rec: 01/27/19 11:03 CLB [id number]) Subjective Physical Therapy Visit Type Type Treatment Note Visit Start Time 10:10 Visit Stop Time 10:30 Total Visit Minutes 20 Number of FINANCIAL SYSTEMS ANALYST Visits 2 Physical Therapy Visit Comments Patient Comments pt agreeable to do PT Therapy Pain Assessment Pain When Pain Assessed During Mobility Pain Present Pain Present Pain Reported Location abdomen Intensity 4 Scale Used Numeric (1 - 10) Pain Management Techniques Modification of Treatment M4 PT-IP Mobility and Gait Start: 01/25/19 15:19 Freq: NEEDED Status: Active Protocol: Document 01/27/19 10:10 CLB (Rec: 01/27/19 11:03 CLB [id number]) PT-Bed Mobility Assessment Supine to Sit Supine to Sit Contact Guard Assistance 1 Person Assistance Head of Bed Elevated Bedrails Scooting Scooting to Edge of Bed Contact Guard Assistance PT-Transfer Assessment Sit to and From Stand Sit to and from Stand Contact Guard Assistance 1 Person Assistance Use of Upper Extremities Equipment Transfer Assistive Device Gait Belt Front Wheeled Walker Orthotic/Prosthetic Devices or Brace: No Transfers Transfer Destination Chair Transfer Technique ambulated Transfer Ability Level of Assist Minimal Assistance 1 Person Assistance Use of Upper Extremities Comments Mobility Comments Pt improving with bed mobility requiring CGA and extra time. Pt sat SBA at EOB while DRUM FILLER washed back. Pt requires assist with IV line and catheter. Gait Assessment Gait Gait Assistance Required: Minimum Assistance 1 Person Assist Assistive Devices Assistive Device Gait Belt Front Wheeled Walker Orthotic/Prosthetic Devices or Brace: No Gait Deviations General Gait Pattern Decreased Stride Length Decreased Feet Clearance Factors Limiting Gait Function Factors Limiting Gait Function Decreased Activity Tolerance Decreased Strength Limited Range of Motion Pain Poor Balance Comments Gait Comments Pt able to walk ~2ft turn and walk 2ft to chair. Pt c/o mild dizziness. Pt ambulates slowly with shuffled gait and fatigues rapidly. M5 PT-IP Objective Assessments Start: 01/25/19 15:19 Freq: NEEDED Status: Active Protocol: Document 01/25/19 14:00 AB (Rec: 01/25/19 16:05 AB [id number]) Orientation Orientation/Cognition Level of Alertness Alert Orientation Name Age Place Situation Language Function Ability No Deficits Noted Safety Awareness Understands Safety Issues Memory Description Short Term Impaired Gross Range of Motion Lower Extremity ROM Assessment Within Functional Limits Strength Lower Extremity Strength Assessment Within Functional Limits Coordination Assessment Gross Coordination Gross Coordination WNL Sensation Assessment Sensation Gross Sensation WNL Muscle Tone Muscle Tone WNL Yes M6 PT-IP Treatment Start: 01/25/19 15:19 Freq: NEEDED Status: Active Protocol: Document 01/25/19 14:00 AB (Rec: 01/25/19 16:05 AB [id number]) Physical Therapy Treatment Education Education Provided Precautions Safety M7 PT-IP Assessment and Plan Start: 01/25/19 15:19 Freq: NEEDED Status: Active Protocol: Document 01/27/19 10:10 CLB (Rec: 01/27/19 11:03 CLB [id number]) PT Summary Assessment and Plan Summary Impairments Pain ROM Strength Balance Bed Mobility Transfers Gait Activity Tolerance Assessment Summary Pt continues to improve with bed mobility but requires extra time to complete tasks due to pain and fatigue. Pt was able to take slow steps in room ~4ft. Pt continues to have decreased activity tolerance. Pt is highly motivated and wants to move as much as she can tolerate. Goals Bed Mobility Goal Standby Assistance Transfer Goal Standby Assistance Front Wheeled Walker Gait Goal Standby Assistance Front Wheel Walker Gait Distance 100 Other Goals improve ambulation without AD ~ 200 ft SBA up/down steps using 1 rail ~ 6 steps SBA Days to Meet Goals 10 Frequency of Treatment Frequency Of Treatment Once a Day Treatment Plan Physical Therapy Treatment Plan Bed Mobility Training Transfer Training Gait Training Therapeutic Exercise Balance Retraining Post Op Education Discharge Planning Hot or Cold Pack Neuromuscular Re-ed Coordination Retraining Manual Therapy Other Recommendations and Next Treatment ambulation Focus Recommendations To Nursing Amount of Assist Needed 1 Person Assist Discharge Recommendations PT Discharge Recommendations Home with Assistance SNF Rehab Other Discharge Recommendations depending on progress SNF vs home with assist Equipment Needed for Home Before FWW if not safe without AD Discharge
--- NOTE | 2019-01-27 11:13 | PC.NURSE ---
Addendum entered by Jennifer Villa R.N. 01/27/19 14:43: Nausea improved. Pt resting comfortably at this time. IV SL. Addendum entered by Jennifer Villa R.N. 01/27/19 14:09: Olivier removed @ 1400, Pt instructed to call staff for assist for next void. Nausea is nearly resolved, Pt educated on options for control. Would like to attempt to minimize IV Dilaudid to reduce nausea. Original Note: AM Shift Pt reports pain control seemed like too much with epidural and PT yesterday. 0600 Epidural was turned off, per offgoing RN. Epidural removed by Dr Mejia @ 1020. Pt tolerated well. Medicated with 0.5mg IV Dilaudid Prior to PT working with patient. Premedicated with Zofran and nausea better controlled. Will transition to PO pain control as Pt is tolerating diet well. Dr Vegas into see Pt, will likely transition upstairs today. Ok to saline lock and remove olivier, Per Dr Vegas.
--- NOTE | 2019-01-27 11:31 | PM.PN.1 ---
Subjective Date Patient Seen: 01/27/19 Time Patient Seen: 11:00 Interval history: Doing well, feels better after a shower this morning. Marley FLD but some burping this morning. A bit nauseated currently but seems related to pain meds. Epidural removed and has taken a few steps with PT. Says 'not much' flatus, no BM yet. Exam Vital Signs (past 8 hours): - 01/27/19 05:20 01/27/19 08:00 Temperature 98.2 F Pulse Rate 87 81 Respiratory Rate 18 12 Blood Pressure 107/57 L 115/66 Pulse Oximetry 97 96 Oxygen Delivery Method Room Air Narrative Exam Narrative: AAO, NAD, female of healthy weight EOMI, MMM, no scleral icterus unlabored RA soft, nt/nd; inc c/d/i MAEW visible skin dry and intact Objective Labs Result Diagrams: 01/25/19 04:46 01/25/19 04:46 Assessment & Plan Assessment & Plan narrative: - epidural out, start PO pain meds - keep with FLD today, cautioned if nausea increases or feels full to stop intake until settled - walk more with assistance - HLIV - remove olivier - ok to move to floor bed - cont' abx through at least tomorrow - SCDs, lovenox Quality VTE Deep Vein Thrombosis/Pulmonary Embolism Present on Admission: Yes
[2019-01-27 12:00] VITALS: BP 147/82; PULSE 89; RESP 20; TEMP 36.9; O2SAT 98
[2019-01-27] MEDS: ENOXAPARIN 40 MG/0.4 ML SYRINGE SUBCUT (14:43)
[2019-01-27 16:00] VITALS: BP 121/71; RESP 17; TEMP 37.7; O2SAT 96
[2019-01-27] MEDS: OXYCODONE 5 MG/5 ML ORAL SOLUTION PO ×2 (17:09→21:54)
[2019-01-27 20:00] VITALS: BP 108/69; PULSE 77; RESP 18; TEMP 37.2; O2SAT 95
[2019-01-28 00:13] VITALS: BP 140/78; PULSE 80; RESP 25; TEMP 37.6; O2SAT 96
[2019-01-28] MEDS: PIPERACILLIN-TAZO 3.375 GM/50 ML FROZ.PIGGY IV ×3 (06:03→17:58)
[2019-01-28 06:09] VITALS: BP 122/79; PULSE 93; RESP 21; TEMP 37.3; O2SAT 97
[2019-01-28] MEDS: PROMETHAZINE 25 MG TABLET PO (06:31)
[2019-01-28] MEDS: OXYCODONE 5 MG/5 ML ORAL SOLUTION PO ×3 (06:35→15:37)
[2019-01-28 08:00] VITALS: BP 154/67; PULSE 79; RESP 19; TEMP 36.9; O2SAT 97
[2019-01-28] MEDS: ENOXAPARIN 40 MG/0.4 ML SYRINGE SUBCUT (08:48)
[2019-01-28] MEDS: TIMOLOL 0.5% OPHTH 1 DROPS EYE-LEFT (08:48)
[2019-01-28] MEDS: GABAPENTIN 300 MG CAPSULE PO ×2 (08:48→21:43)
[2019-01-28] MEDS: SODIUM CHLORIDE 0.9% FLUSH 10 ML IV ×2 (08:52→21:43)
[2019-01-28] MEDS: HYDROMORPHONE 2 MG INJ 0.5 MG IV (08:53)
--- NOTE | 2019-01-28 10:35 | PT.IPTN ---
Current Diagnoses Volvulus (01/24/19) Surgery Performed Operation Date: 01/24/19 21:45 <No data on this case meets the specified criteria> Operation Date: 01/24/19 22:15 Actual Procedures p RIGHT HEMICOLECTOMY - Sorin Albarado MD Physical Therapy Treatment Note M2 PT-IP Current Condition Start: 01/25/19 15:19 Freq: NEEDED Status: Active Protocol: Document 01/25/19 14:00 AB (Rec: 01/25/19 16:05 AB [id number]) Physical Therapy Current Condition Current Condition Evaluation Date 01/25/19 Treatment Diagnosis s/p R hemicolectomy; difficulty in walking Onset Date 01/24/19 Precautions Abdominal Surgery Precautions Log Roll Lifting Restrictions Gait Belt above Incisional Area M3 PT-IP Subjective Start: 01/25/19 15:19 Freq: NEEDED Status: Active Protocol: Document 01/28/19 10:05 CLB (Rec: 01/28/19 12:05 CLB [id number]) Subjective Physical Therapy Visit Type Type Treatment Note Visit Start Time 10:05 Visit Stop Time 10:35 Total Visit Minutes 30 Number of SERVICE CLERK Visits 3 Physical Therapy Visit Comments Patient Comments pt agreeable to do PT Therapy Pain Assessment Pain When Pain Assessed During Mobility Pain Present Pain Present Pain Reported Location abdomen Intensity 6 Scale Used Numeric (1 - 10) Pain Management Techniques Modification of Treatment Timing of Activity with Medications M4 PT-IP Mobility and Gait Start: 01/25/19 15:19 Freq: NEEDED Status: Active Protocol: Document 01/28/19 10:05 CLB (Rec: 01/28/19 12:05 CLB [id number]) PT-Bed Mobility Assessment Supine to Sit Supine to Sit Standby Assistance Head of Bed Elevated Scooting Scooting to Edge of Bed Standby Assistance PT-Transfer Assessment Sit to and From Stand Sit to and from Stand Contact Guard Assistance 1 Person Assistance Use of Upper Extremities Equipment Transfer Assistive Device Gait Belt Front Wheeled Walker Orthotic/Prosthetic Devices or Brace: No Transfers Transfer Destination Chair Bedside Commode Transfer Technique Stand Step Pivot Transfer Ability Level of Assist Contact Guard Assistance 1 Person Assistance Use of Upper Extremities Comments Mobility Comments Pt continues to improve with bed mobility and transfers. Pt states pain is 4/10 with bed mobility. Pt able to perform own pericare. Gait Assessment Gait Gait Assistance Required: Standby Assistance Contact Guard Assist 1 Person Assist Distance (Feet) 40 Assistive Devices Assistive Device Gait Belt Front Wheeled Walker Orthotic/Prosthetic Devices or Brace: No Gait Deviations General Gait Pattern Decreased Stride Length Decreased Feet Clearance Factors Limiting Gait Function Factors Limiting Gait Function Decreased Activity Tolerance Decreased Strength Limited Range of Motion Pain Comments Gait Comments Pt able to ambulate in acevedo ~ 40ft with several standing rest breaks. Pt ambulate slowly with decreased foot clearance. Pt is steady on her feet with good safety awareness. Pt required cues for posture. Pt rated her pain during ambulation at 5-6/10. M5 PT-IP Objective Assessments Start: 01/25/19 15:19 Freq: NEEDED Status: Active Protocol: Document 01/25/19 14:00 AB (Rec: 01/25/19 16:05 AB [id number]) Orientation Orientation/Cognition Level of Alertness Alert Orientation Name Age Place Situation Language Function Ability No Deficits Noted Safety Awareness Understands Safety Issues Memory Description Short Term Impaired Gross Range of Motion Lower Extremity ROM Assessment Within Functional Limits Strength Lower Extremity Strength Assessment Within Functional Limits Coordination Assessment Gross Coordination Gross Coordination WNL Sensation Assessment Sensation Gross Sensation WNL Muscle Tone Muscle Tone WNL Yes M6 PT-IP Treatment Start: 01/25/19 15:19 Freq: NEEDED Status: Active Protocol: Document 01/25/19 14:00 AB (Rec: 01/25/19 16:05 AB [id number]) Physical Therapy Treatment Education Education Provided Precautions Safety M7 PT-IP Assessment and Plan Start: 01/25/19 15:19 Freq: NEEDED Status: Active Protocol: Document 01/28/19 10:05 CLB (Rec: 01/28/19 12:05 CLB [id number]) PT Summary Assessment and Plan Summary Impairments Pain ROM Strength Balance Bed Mobility Transfers Gait Activity Tolerance Assessment Summary Pt able to get OOB at a quicker pace and able to transfer to [facility] and able to perform own pericare. Pt ambulated ~40ft in acevedo with SBA/CGA with steady but slow gait. Due to improved mobility pt would benefit from PT twice a day, this SERVICE CLERK discussed with PT. Goals Bed Mobility Goal Standby Assistance Transfer Goal Standby Assistance Front Wheeled Walker Gait Goal Standby Assistance Front Wheel Walker Gait Distance 100 Other Goals improve ambulation without AD ~ 200 ft SBA up/down steps using 1 rail ~ 6 steps SBA Frequency of Treatment Frequency Of Treatment Twice a Day Treatment Plan Physical Therapy Treatment Plan Bed Mobility Training Transfer Training Gait Training Therapeutic Exercise Balance Retraining Post Op Education Discharge Planning Hot or Cold Pack Neuromuscular Re-ed Coordination Retraining Manual Therapy Other Recommendations and Next Treatment ambulation Focus Recommendations To Nursing Amount of Assist Needed 1 Person Assist Discharge Recommendations PT Discharge Recommendations Home with Assistance SNF Rehab Other Discharge Recommendations depending on progress SNF vs home with assist Equipment Needed for Home Before FWW if not safe without AD Discharge
[2019-01-28 12:42] VITALS: BP 126/56; PULSE 72; RESP 20; TEMP 36.7; O2SAT 96
--- NOTE | 2019-01-28 13:48 | PC.NURSE ---
pt requiring much encouragement for all mobility- saline locked and did ambulate with PT AND OT at different times during this shift- dressing removed from belly incision and left open to air- erik intact no noted drainage- she showered and new iv started and continues to recieved iv antibiotics- otherwise full liquids continue
--- NOTE | 2019-01-28 14:07 | OT.IP.EVAL ---
Current Diagnoses Volvulus (01/24/19) Surgery Performed Operation Date: 01/24/19 21:45 <No data on this case meets the specified criteria> Operation Date: 01/24/19 22:15 Actual Procedures p RIGHT HEMICOLECTOMY - Sorin Albarado MD Past Medical History (Last Reviewed 01/25/19 @ 03:37 by Vasile Sawant DO) Elevated cholesterol (Chronic) Surgical History (Last Reviewed 01/25/19 @ 03:37 by Vasile Sawant DO) History of (Resolved) Occupational Therapy Inpatient Evaluation/Re-Eval M1 PT/OT-IP Prior Functional Status Start: 01/25/19 15:19 Freq: NEEDED Status: Active Protocol: Document 01/28/19 13:39 CGR (Rec: 01/28/19 14:07 CGR [email or web address]) Medical Review Prior Functional Status Medical History Reviewed Yes Communication able to make needs known Mobility and Gait pt stated that she is independent with all mobilities and ambulation without AD Prior Functional Level (Other details) Pt lives in [place] and is in here for a vacation. pt wants to be able to fly back to [place] on ( December). Pt does not has a specific place to stay if flying back to [place] is not feasible. pt stated that she might stay on a hotel but does not have a definite plan. Social History Household Members spouse Living Arrangements House Number of Floors (Floors) Two Floors Number of Stairs To Enter/Railing? 3 steps to enter without rails and 11 steps up to second floor. Bedroom and bathroom on second floor. Home Environment Standard Height Toilet Walk in Shower Home Equipment Hand Held Shower Employment Status Mortgage Analyst Employed Additional Social History Comment Pt works as a school nurse. M2 OT-IP Current Condition Start: 01/28/19 13:39 Freq: Status: Active Protocol: Document 01/28/19 13:39 CGR (Rec: 01/28/19 14:07 CGR [email or web address]) Occupational Therapy Current Condition Current Condition Evaluation Date 01/28/19 Treatment Diagnosis necrotic bowel s/p emergent open R hemicolectomy. Diagnosis Onset Date 01/25/19 M3 OT- IP Subjective and Pain Start: 01/28/19 13:39 Freq: Status: Active Protocol: Document 01/28/19 13:39 CGR (Rec: 01/28/19 14:07 CGR [email or web address]) OT- Subjective Occupational Therapy Visit Type Type Initial Evaluation Visit Start Time 12:45 Visit Stop Time 13:30 Total Visit Minutes 45 Notes Pt requesting shower. Occupational Therapy Visit Comments Patient Comments This shower feels amazing OT Pain Assessment Pain When Pain Assessed At Rest Pain Present Pain Present Pain Reported Location abdomen Intensity 1 Scale Used Numeric (1 - 10) M4 OT- IP ADL's Start: 01/28/19 13:39 Freq: Status: Active Protocol: Document 01/28/19 13:39 CGR (Rec: 01/28/19 14:07 CGR [email or web address]) OT [id number] Comments OT Self-Feeding Comments Not meal time OT ADL-Grooming General Evaluation Grooming Ability Standby Assistance Areas Needing Assistance Combing/Brushing Hair Face Washing Glasses Comments OT Grooming Comments In shower OT ADL-Oral Care Comments Oral Care Comments Pt declined OT ADL-Dressing General Eval Upper Body Dressing Ability Independent Lower Body Dressing Ability Independent Areas Needing Assistance Retrieving/Set-up of Clothing Socks Comments OT Dressing Comments Socks and hospital gown. OT ADL-Toileting General Evaluation Toileting Ability Standby Assistance Devices Toileting Assistive Devices Commode Comments OT Toileting Comments BSC at bedside. OT ADL-Bathing Bathing Type Bathing Type Shower General Evaluation Bathing Ability Contact Guard Assistance Areas Needing Assistance Retrieving/Setting Up Items Devices Bathing Equipment Hand Held Shower Sprayer Shower Chair without Arms Grab Bars M5 OT- IP IADL's Start: 01/28/19 13:39 Freq: Status: Active Protocol: Document 01/28/19 13:39 CGR (Rec: 01/28/19 14:07 CGR [email or web address]) OT-Instrumental Activities of Daily Living Deficits IADL Deficits Identified Deficits Home Safety Awareness Awareness of Need for Assistance at Home Good Awareness Ability to Problem Solve Emergency Able to Problem Solve Situations Medication Management Medication Management No Deficits Identified Money Management Money Management No Deficits Identified Meal Preparation Meal Preparation Caregiver Provides Assist Military Pilot Military Pilot Caregiver Provides Assist Driving Driving Caregiver Provides Assist M6 OT- IP Functional Cognition Start: 01/28/19 13:39 Freq: Status: Active Protocol: Document 01/28/19 13:39 CGR (Rec: 01/28/19 14:07 CGR [email or web address]) Cognitive Factors Limiting Selfcare Function Cognitive Ability Level of Alertness Alert Patient Orientation Name Age Birthday Month Date Year Day of Week Place Situation Attention Span Ability Capable of Focused Attention Capable of Sustained Attention Ability to Follow Commands Able to Follow Multi-Step Commands Memory Description No Deficits Noted Safety Awareness No Deficits Noted Problem Solving Ability No deficits Noted Executive Function Ability No Deficits Noted Abstract Thinking Ability No Deficits Noted OT- Vision and Hearing OT- Hearing Assessment OT- Hearing Assessment WFL OT- Vision Assessment Visual Acuity WFL Glasses All The Time Visual Attentiveness WFL Occular Pursuits WFL Visual Convergence WFL Visual Carter WFL Diplopia Absent M7 OT- IP Mobility and Balance Start: 01/28/19 13:39 Freq: Status: Active Protocol: Document 01/28/19 13:39 CGR (Rec: 01/28/19 14:07 CGR [email or web address]) OT- Bed Mobility Assessment Rolling Type of Rolling Roll to Left Level of Assistance Standby Assistance Sit to Supine Sit to Supine Assist Contact Guard Assistance Scooting Scooting to Edge of Bed Contact Guard Assistance OT-Transfer Assessment Sit to and From Stand Sit to and from Stand Standby Assistance Transfers Transfer Ability Standby Assistance Technique Transfer Destination Bed Bedside Commode Chair Shower Stall Transfer Technique Stand Step Pivot Devices Transfer Assistive Devices Gait Belt Front Wheeled Walker Comments Mobility Comments Pt is slow with her mobility but able to perform without physical assist. OT- Gait Assessment Gait Gait Assistance Required: Standby Assistance Assistive Devices Assistive Device Gait Belt Front Wheeled Walker Comments Gait Ability Comments Ambulated to shower and returned to room. OT- Balance Assessment Sitting Balance and Reactions Static Sitting Balance Ability Normal Dynamic Sitting Balance Ability Normal M8 OT- IP Objective Assessments Start: 01/28/19 13:39 Freq: Status: Active Protocol: Document 01/28/19 13:39 CGR (Rec: 01/28/19 14:07 CGR [email or web address]) OT Gross Range of Motion Upper Extremity Range of Motion Assessment Within Functional Limits OT Strength Upper Extremity Strength Assessment Within Functional Limits Comments Strength Comments 4- to 4/5 throughout OT- Coordination Assessment Upper Extremity Finger to Nose Test Within Functional Limits Finger Tapping Test Within Functional Limits OT-Muscle Tone Assessment Muscle Tone WNL Yes OT Sensation Assessment Comments Summary Comments No deficits Edema Edema Absent M9 OT- IP Assessment and Plan Start: 01/28/19 13:39 Freq: Status: Active Protocol: Document 01/28/19 13:39 CGR (Rec: 01/28/19 14:07 CGR [email or web address]) OT Summary Assessment and Plan Potential Rehabilitation Potential Excellent Analytic Complexity at Evaluation Low Summary OT Impairments Pain Strength Functional Mobility Grooming Dressing Toileting Bathing Toilet Transfers Shower Transfers Progress Towards Goals Progressing Toward Goals Assessment Summary Pt presents with declines to ADLs and functional mobility after need for emergent hemicolectomy. Pt will benefit from continued therapy services to address declines and prepare for discharge home . Pt lives in [place] and is planning to fly home when possible. Recommend discharge home with family support. Goals Grooming Goal Independent Dressing Goal Independent Toileting Goal Independent Bathing Goal Independent Toilet Transfer Goal Independent Shower Transfer Goal Independent Days to Meet Goals 3 Frequency of Treatment Frequency Of Treatment Once a Day Treatment Plan OT Treatment Plan ADL Training Functional Mobility Therapeutic Exercises Patient/Family Education Discharge Planning Discharge Recommendations OT Discharge Recommendations Home with Assistance Other Discharge Recommendations Pt will need to be able to tolerate getting to toilet without assist d/t need to fly and ability to ambulate in small space without walker to get to on board bathroom. Home Equipment Needs TBD
[2019-01-28] MEDS: BISACODYL 10 MG SUPP PR (15:30)
[2019-01-28 16:16] VITALS: BP 115/70; PULSE 73; RESP 20; TEMP 37.1; O2SAT 98
--- NOTE | 2019-01-28 16:59 | PT.IPTN ---
Current Diagnoses Volvulus (01/24/19) Surgery Performed Operation Date: 01/24/19 21:45 <No data on this case meets the specified criteria> Operation Date: 01/24/19 22:15 Actual Procedures p RIGHT HEMICOLECTOMY - Sorin Albarado MD Physical Therapy Treatment Note M2 PT-IP Current Condition Start: 01/25/19 15:19 Freq: NEEDED Status: Active Protocol: Document 01/25/19 14:00 AB (Rec: 01/25/19 16:05 AB [id number]) Physical Therapy Current Condition Current Condition Evaluation Date 01/25/19 Treatment Diagnosis s/p R hemicolectomy; difficulty in walking Onset Date 01/24/19 Precautions Abdominal Surgery Precautions Log Roll Lifting Restrictions Gait Belt above Incisional Area M3 PT-IP Subjective Start: 01/25/19 15:19 Freq: NEEDED Status: Active Protocol: Document 01/28/19 16:58 CLB (Rec: 01/28/19 16:59 CLB [id number]) Subjective Physical Therapy Visit Type Type Patient Refusal Notes Pt just up with CYLINDER FILLER walking in [place]vedo. Will check back with pt in AM.
--- NOTE | 2019-01-28 17:31 | PM.PNPO.1 ---
Subjective Date Patient Seen: 01/28/19 Time Patient Seen: 11:00 Interval history: Patient is postop day 3 from a right hemicolectomy with primary anastomosis for necrotic cecum due to volvulus. She has not passed any flatus and no bowel movement. Pain seems relatively well controlled. She feels lot of cramping in her abdomen. Exam Vital Signs (past 8 hours): - 01/28/19 12:42 01/28/19 16:16 Temperature 98.1 F 98.7 F Pulse Rate 72 73 Respiratory Rate 20 20 Blood Pressure 126/56 L 115/70 Pulse Oximetry 96 98 Oxygen Delivery Method Room Air Oxygen Flow Rate 0 Narrative Exam Narrative: Lungs are clear to auscultation. Good effort. Heart regular rate and rhythm without murmur gallop. Abdomen is distended. Incision is intact. No cellulitis. Objective Labs Result Diagrams: 01/25/19 04:46 01/25/19 04:46 Assessment & Plan Post-op Postoperative Procedures Operation Date: 01/24/19 21:45 <No data on this case meets the specified criteria> Operation Date: 01/24/19 22:15 Actual Procedures Side Surgeon p RIGHT HEMICOLECTOMY Sorin Albarado MD Postoperative status narrative: Ileus with distention. Otherwise doing okay. Postoperative plan narrative: Physical therapy and ambulation. To collect suppository to see if we can stimulate colonic function. I am going to back down on her diet a bit. She is really very distended and I am concerned that that may become a problem. We will also try to avoid narcotics and switched her to IV Toradol. Quality VTE Deep Vein Thrombosis/Pulmonary Embolism Present on Admission: Yes
[2019-01-28] MEDS: KETOROLAC 30 MG/ML VIAL IV (17:58)
--- NOTE | 2019-01-28 23:47 | PC.NURSE ---
Evening Shift Note: Pt checked on and assessed. Pt with physical assessment WNL except for abdominal distension and edema. Pt with BTs in all quadrants, belching, but had not decisively been passing flatus today. Pt states maybe once, when asked if she has had flatus. Pt also endorsed cramping abdominal pain after walking around unit, she states maybe it's just things waking up in there. Pt walked in unit 3 times this shift and sat up for dinner for several hours. Dr. Collins notified of these findings. Orders received to put pt on a clear liquid diet from a prior full liquid diet and to administer toradol for pain. Pt with good pain control after toradol given, states pain is 1 at rest. Did not request additional pain medication at this time. Will continue to monitor, notify MD with changes.
[2019-01-29] MEDS: PIPERACILLIN-TAZO 3.375 GM/50 ML FROZ.PIGGY IV ×4 (00:44→18:29)
[2019-01-29 00:45] VITALS: BP 138/80; PULSE 82; RESP 18; TEMP 37.3; O2SAT 96
[2019-01-29] MEDS: KETOROLAC 30 MG/ML VIAL IV ×3 (01:47→18:28)
[2019-01-29 05:05] LABS: Add Manual Diff / Slide Review NO; Basophils Absolute Auto 0 /uL (0-100); Basophils Percent Auto 0.4 % (0-2); Eosinophils Absolute Auto 100 /uL (0-450); Eosinophils Percent Auto 1.4 % (2-4); Hematocrit 30.1 % (36-46); Hemoglobin 10.3 g/dL (12.0-16.0); Lymphocytes Absolute Auto 1700 /uL (1100-4500); Mean Corpuscular HGB Conc 34.3 % (30-36); Mean Corpuscular Hemoglobin 32.1 PG (26-34); Mean Corpuscular Volume 93.7 fL (80-100); Monocytes Absolute Auto 600 /uL (0-900); Monocytes Percent Auto 10.2 % (3-14); Neutrophils Absolute Auto 3800 /uL (1500-7000); Platelet Count 221 X10^3/uL (150-400); Red Blood Cell Count 3.21 X10^6/uL (4.0-5.2); Red Cell Distribution Width 12.9 % (11.6-14.8); White Blood Cell Count 6.2 X10^3/uL (4.5-11.0)
[2019-01-29 05:11] LABS: Alanine Aminotransferase 42 IU/L (9-52); Albumin Globulin Ratio 1.2 (1.0-2.8); Alkaline Phosphatase 108 U/L (38-126); Aspartate Aminotransferase 51 IU/L (14-36); BUN Creatinine Ratio 7.5 (6-22); Bilirubin Total 0.4 mg/dL (0.2-1.3); Blood Urea Nitrogen 6 mg/dL (7-17); Calcium 8.6 mg/dL (8.4-10.2); Carbon Dioxide 31 mmol/L (22-32); Chloride 104 mmol/L (98-107); Estimated Glomerular Filt Rate > 60.0 mL/min (>60); Globulin 2.5 g/dL (1.7-4.1); Glucose 93 mg/dL (80-110); HEMOLYSIS < 15 (0-50); Magnesium 2.1 mg/dL (1.6-2.3); Potassium 3.6 mmol/L (3.4-5.1); Sodium 139 mmol/L (137-145); Total Protein 5.5 g/dL (6.3-8.2)
[2019-01-29] MEDS: SODIUM CHLORIDE 0.9% FLUSH 10 ML IV ×3 (06:27→20:23)
[2019-01-29 06:51] VITALS: BP 131/68; PULSE 75; RESP 18; TEMP 37.2; O2SAT 96
[2019-01-29 07:16] VITALS: BP 131/68; PULSE 74; RESP 17; TEMP 37.7; O2SAT 95
[2019-01-29] MEDS: ENOXAPARIN 40 MG/0.4 ML SYRINGE SUBCUT (09:03)
[2019-01-29] MEDS: TIMOLOL 0.5% OPHTH 1 DROPS EYE-LEFT (09:04)
[2019-01-29] MEDS: GABAPENTIN 300 MG CAPSULE PO ×2 (09:06→20:23)
--- NOTE | 2019-01-29 10:05 | OT.IP.TRT ---
Current Diagnoses Volvulus (01/24/19) Surgery Performed Operation Date: 01/24/19 21:45 <No data on this case meets the specified criteria> Operation Date: 01/24/19 22:15 Actual Procedures p RIGHT HEMICOLECTOMY - Sorin Albarado MD Occupational Therapy Treatment Note M2 OT-IP Current Condition Start: 01/28/19 13:39 Freq: Status: Active Protocol: Document 01/28/19 13:39 CGR (Rec: 01/28/19 14:07 CGR [id number]) Occupational Therapy Current Condition Current Condition Evaluation Date 01/28/19 Treatment Diagnosis necrotic bowel s/p emergent open R hemicolectomy. Diagnosis Onset Date 01/25/19 M3 OT- IP Subjective and Pain Start: 01/28/19 13:39 Freq: Status: Active Protocol: Document 01/29/19 10:05 PJYolanda (Rec: 01/29/19 16:47 FABIANO [id number]) OT- Subjective Occupational Therapy Visit Type Type Treatment Note Visit Start Time 09:45 Visit Stop Time 10:05 Total Visit Minutes 20 Occupational Therapy Visit Comments Patient Comments I am not sure when the doctor will let me fly. 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 OT Pain Assessment Pain When Pain Assessed After Treatment Pain Present Pain Present Pain Reported Location abdomen Intensity 2 Scale Used Numeric (1 - 10) Description Aching Acute Pain Behaviors Guarding Management Techniques Distraction Re-positioning Timing of Activity with Medications M4 OT- IP ADL's Start: 01/28/19 13:39 Freq: Status: Active Protocol: Document 01/29/19 10:05 PJYolanda (Rec: 01/29/19 16:47 PJ [id number]) OT [id number] General Evaluation Self-Feeding Ability Independent OT ADL-Grooming General Evaluation Grooming Ability Independent Comments OT Grooming Comments standing at sink OT ADL-Oral Care General Eval Oral Care Ability Independent Comments Oral Care Comments standing at sink OT ADL-Dressing General Eval Upper Body Dressing Ability Independent Lower Body Dressing Ability Independent Areas Needing Assistance Underpants/Brief Socks Comments OT Dressing Comments provided education re: body mechanics after abdominal surgery OT ADL-Toileting General Evaluation Toileting Ability Independent OT ADL-Bathing Bathing Type Bathing Type Shower General Evaluation Bathing Ability Standby Assistance Areas Needing Assistance Retrieving/Setting Up Items Comments OT Bathing Comments pt showered yesterday M5 OT- IP IADL's Start: 01/28/19 13:39 Freq: Status: Active Protocol: Document 01/29/19 10:05 PJM (Rec: 01/29/19 16:47 PJM [id number]) OT-Instrumental Activities of Daily Living Deficits IADL Deficits Identified Deficits Home Safety Awareness Awareness of Need for Assistance at Home Good Awareness Ability to Problem Solve Emergency Able to Problem Solve Situations Home Safety Comments Provided education re: energy conservation and pacing, 10# lifting restriction which pt will confirm with MD Medication Management Medication Management No Deficits Identified Money Management Money Management No Deficits Identified Meal Preparation Meal Preparation Caregiver Provides Assist Meal Preparation Comments and friends to assist until pt able Medical Radiation Dosimetrist Medical Radiation Dosimetrist Caregiver Provides Assist Medical Radiation Dosimetrist Comments to assist until pt able Driving Driving Caregiver Provides Assist Driving Comments to assist until pt able M6 OT- IP Functional Cognition Start: 01/28/19 13:39 Freq: Status: Active Protocol: Document 01/28/19 13:39 CGR (Rec: 01/28/19 14:07 CGR [id number]) Cognitive Factors Limiting Selfcare Function Cognitive Ability Level of Alertness Alert Patient Orientation Name Age Birthday Month Date Year Day of Week Place Situation Attention Span Ability Capable of Focused Attention Capable of Sustained Attention Ability to Follow Commands Able to Follow Multi-Step Commands Memory Description No Deficits Noted Safety Awareness No Deficits Noted Problem Solving Ability No deficits Noted Executive Function Ability No Deficits Noted Abstract Thinking Ability No Deficits Noted M7 OT- IP Mobility and Balance Start: 01/28/19 13:39 Freq: Status: Active Protocol: Document 01/29/19 10:05 PJM (Rec: 01/29/19 16:47 PJM [id number]) OT-Transfer Assessment Comments Mobility Comments Pt SBA with all mobility per P.T. notes, pt verbalizes understanding of log rolling technique OT- Gait Assessment Comments Gait Ability Comments SBA per P.T. notes with FWW OT- Balance Assessment Sitting Balance and Reactions Static Sitting Balance Ability Good Dynamic Sitting Balance Ability Good M9 OT- IP Assessment and Plan Start: 01/28/19 13:39 Freq: Status: Active Protocol: Document 01/29/19 10:05 PJM (Rec: 01/29/19 16:47 PJ [id number]) OT Summary Assessment and Plan Potential Rehabilitation Potential Good Summary Progress Towards Goals Safe For Discharge Goals Met Assessment Summary Pt reports she has been up in room to sink and bathroom with SBA from nursing staff. Pt verbalizes understanding of all education re: precautions after abdominal surgery and concepts of energy conservation and pacing. 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 All OT goals achieved for this admission. Pt will return to [place] when cleared by . Her is here to assist her with travel and pt plans to use w/c in airport. is retired and can provide 24 hr assist PRN at home. No further OT services needed. Frequency of Treatment Frequency Of Treatment Discharge Discharge Recommendations OT Discharge Recommendations Home with 24/7 Assist Home Equipment Needs shower seat PRN
--- NOTE | 2019-01-29 12:05 | PT.IPTN ---
Current Diagnoses Volvulus (01/24/19) Surgery Performed Operation Date: 01/24/19 21:45 <No data on this case meets the specified criteria> Operation Date: 01/24/19 22:15 Actual Procedures p RIGHT HEMICOLECTOMY - Sorin Albarado MD Physical Therapy Treatment Note M2 PT-IP Current Condition Start: 01/25/19 15:19 Freq: NEEDED Status: Active Protocol: Document 01/25/19 14:00 AB (Rec: 01/25/19 16:05 AB [id number]) Physical Therapy Current Condition Current Condition Evaluation Date 01/25/19 Treatment Diagnosis s/p R hemicolectomy; difficulty in walking Onset Date 01/24/19 Precautions Abdominal Surgery Precautions Log Roll Lifting Restrictions Gait Belt above Incisional Area M3 PT-IP Subjective Start: 01/25/19 15:19 Freq: NEEDED Status: Active Protocol: Document 01/29/19 11:00 CLB (Rec: 01/29/19 12:05 CLB [id number]) Subjective Physical Therapy Visit Type Type Treatment Note Visit Start Time 11:00 Visit Stop Time 11:15 Total Visit Minutes 15 Number of COMMUNITY DEVELOPMENT DIRECTOR Visits 4 Physical Therapy Visit Comments Patient Comments pt agreeable to do PT Therapy Pain Assessment Pain When Pain Assessed During Mobility Pain Present Pain Present Pain Reported Location abdomen Intensity 2 Scale Used Numeric (1 - 10) M4 PT-IP Mobility and Gait Start: 01/25/19 15:19 Freq: NEEDED Status: Active Protocol: Document 01/29/19 11:00 CLB (Rec: 01/29/19 12:05 CLB [id number]) PT-Transfer Assessment Sit to and From Stand Sit to and from Stand Standby Assistance Equipment Transfer Assistive Device Gait Belt Front Wheeled Walker Orthotic/Prosthetic Devices or Brace: No Transfers Transfer Destination Chair Transfer Technique ambulated Transfer Ability Level of Assist Standby Assistance Gait Assessment Gait Gait Assistance Required: Standby Assistance Distance (Feet) 200 Assistive Devices Assistive Device Gait Belt Front Wheeled Walker Orthotic/Prosthetic Devices or Brace: No Gait Deviations General Gait Pattern Decreased Stride Length Decreased Feet Clearance Factors Limiting Gait Function Factors Limiting Gait Function Decreased Activity Tolerance Decreased Strength Limited Range of Motion Pain Comments Gait Comments Pt increased ambulation to ~ 200ft with slow but steady pace w/o need of rest break. Pt had good balance with walker use. M5 PT-IP Objective Assessments Start: 01/25/19 15:19 Freq: NEEDED Status: Active Protocol: Document 01/25/19 14:00 AB (Rec: 01/25/19 16:05 AB [id number]) Orientation Orientation/Cognition Level of Alertness Alert Orientation Name Age Place Situation Language Function Ability No Deficits Noted Safety Awareness Understands Safety Issues Memory Description Short Term Impaired Gross Range of Motion Lower Extremity ROM Assessment Within Functional Limits Strength Lower Extremity Strength Assessment Within Functional Limits Coordination Assessment Gross Coordination Gross Coordination WNL Sensation Assessment Sensation Gross Sensation WNL Muscle Tone Muscle Tone WNL Yes M6 PT-IP Treatment Start: 01/25/19 15:19 Freq: NEEDED Status: Active Protocol: Document 01/25/19 14:00 AB (Rec: 01/25/19 16:05 AB [id number]) Physical Therapy Treatment Education Education Provided Precautions Safety M7 PT-IP Assessment and Plan Start: 01/25/19 15:19 Freq: NEEDED Status: Active Protocol: Document 01/29/19 11:00 CLB (Rec: 01/29/19 12:05 CLB [id number]) PT Summary Assessment and Plan Summary Impairments Pain ROM Strength Balance Bed Mobility Transfers Gait Activity Tolerance Assessment Summary Pt improving with transfers and increased ambulation to ~ 200ft. Goals Bed Mobility Goal Standby Assistance Transfer Goal Standby Assistance Front Wheeled Walker Gait Goal Standby Assistance Front Wheel Walker Gait Distance 100 Other Goals improve ambulation without AD ~ 200 ft SBA up/down steps using 1 rail ~ 6 steps SBA Frequency of Treatment Frequency Of Treatment Twice a Day Treatment Plan Physical Therapy Treatment Plan Bed Mobility Training Transfer Training Gait Training Therapeutic Exercise Balance Retraining Post Op Education Discharge Planning Hot or Cold Pack Neuromuscular Re-ed Coordination Retraining Manual Therapy Other Recommendations and Next Treatment ambulation w/SPC, stairs. Focus Recommendations To Nursing Amount of Assist Needed 1 Person Assist Discharge Recommendations PT Discharge Recommendations Home with Assistance Equipment Needed for Home Before FWW if not safe without AD Discharge
--- NOTE | 2019-01-29 13:08 | PC.NURSE ---
PT DOING BETTER TODAY AND MUCH MORE COMFORTABLE WITH IV TORADOL VS. OXYCODONE ELIXER- HAS AMBULATED FEW TIMES IN ICU COORIDOR AND SHOWERED UNASSISTED- SHE IS INDEPENDENT TO BATHROOM AND HAS BEEN MOVING BOWELS SMALL AMOUNT EACH VOID- VSS AND TOLERATING INCREASED DIET BACK TO FULL LIQUIDS DENIES ANY NAUSEA AND PT DID NOT RECEIVE AM SUPPOSITORY PER DR. GUALLPA ORDER PT HAS BEEN MOVING BOWELS
--- NOTE | 2019-01-29 14:55 | DI.RAD.S_ITS ---
PROCEDURE: XR ACUTE ABDOMEN SERIES INDICATIONS: f/u post r hemicloectomy. wish to see gas pattern TECHNIQUE: One view chest and two views of the abdomen were acquired. COMPARISON: [facility], CT, CT ABDOMEN PELVIS W CON, 01/24/2019, 21:05. FINDINGS: Surgical changes and devices: Numerous midline skin erik.. Chest: Lungs are clear. Heart size is normal. No pleural effusions. No pneumoperitoneum. Abdomen: There is intraperitoneal free air, presumably postoperative in nature. There are mildly prominent gas-filled bowel loops although, although improved since 01/24/19 CT special events coordinator image. Prominent stool seen in the distal colon/rectal vault. Bones: No suspicious bony lesions. IMPRESSION: Intraperitoneal free air, presumably from recent abdominal surgery. No specific evidence of bowel obstruction, or discrete transition point. Clear lungs. Dictated by: Perry Espana M.D. on 01/29/2019 at 16:09 Approved by: Perry Espana M.D. on 01/29/2019 at 16:14
--- NOTE | 2019-01-29 15:15 | PM.PNPO.1 ---
Subjective Date Patient Seen: 01/29/19 Time Patient Seen: 13:00 Interval history: The patient is feeling much better with the addition of Toradol. She has been up and about. Has had multiple liquid bowel movements. Passing flatus. Abdomen feels less distended. Exam Vital Signs (past 8 hours): - 01/29/19 07:16 Temperature 100 F H Pulse Rate 74 Respiratory Rate 17 Blood Pressure 131/68 Pulse Oximetry 95 Oxygen Delivery Method Room Air Oxygen Flow Rate 0 Narrative Exam Narrative: Low-grade temp 100?. Lungs clear. Heart regular rate and rhythm no murmur gallop. Abdomen is still distended but much softer. Less distended. The incision is intact. No cellulitis. Objective Labs Result Diagrams: 01/29/19 04:41 01/29/19 04:41 Labs: Laboratory Results - last 24 hr 01/29/19 01/29/19 04:41 04:41 WBC 6.2 RBC 3.21 L Hgb 10.3 L Hct 30.1 L MCV 93.7 MCH 32.1 MCHC 34.3 RDW 12.9 Plt Count 221 Neut % (Auto) 61.0 Lymph % (Auto) 27.0 [place] % (Auto) 10.2 Eos % (Auto) 1.4 L Baso % (Auto) 0.4 Neut # (Auto) 3800 Lymph # (Auto) 1700 [place] # (Auto) 600 Eos # (Auto) 100 Baso # (Auto) 0 Sodium 139 Potassium 3.6 Chloride 104 Carbon Dioxide 31 BUN 6 L Creatinine 0.80 Estimated GFR > 60.0 BUN/Creatinine Ratio 7.5 Glucose 93 Calcium 8.6 Magnesium 2.1 Total Bilirubin 0.4 AST 51 H ALT 42 Alkaline Phosphatase 108 D Total Protein 5.5 L Albumin 3.0 L Globulin 2.5 Albumin/Globulin Ratio 1.2 Assessment & Plan Post-op Postoperative Procedures Operation Date: 01/24/19 21:45 <No data on this case meets the specified criteria> Operation Date: 01/24/19 22:15 Actual Procedures Side Surgeon p RIGHT HEMICOLECTOMY Sorin Albarado MD Postoperative day: 4 Postoperative status narrative: White blood cell count and comprehensive metabolic panel or are okay. Work on breathing. She does have a low-grade temp. Will check a urinalysis. Ordered x-rays I would like to see with the gas pattern is. We will also tell me about her pulmonary status. Quality VTE Deep Vein Thrombosis/Pulmonary Embolism Present on Admission: Yes
[2019-01-29 16:23] VITALS: BP 125/72; PULSE 80; RESP 16; TEMP 37.6; O2SAT 98
--- NOTE | 2019-01-29 16:37 | PT.IPTN ---
Current Diagnoses Volvulus (01/24/19) Surgery Performed Operation Date: 01/24/19 21:45 <No data on this case meets the specified criteria> Operation Date: 01/24/19 22:15 Actual Procedures p RIGHT HEMICOLECTOMY - Sorin Albarado MD Physical Therapy Treatment Note M2 PT-IP Current Condition Start: 01/25/19 15:19 Freq: NEEDED Status: Active Protocol: Document 01/25/19 14:00 AB (Rec: 01/25/19 16:05 AB [id number]) Physical Therapy Current Condition Current Condition Evaluation Date 01/25/19 Treatment Diagnosis s/p R hemicolectomy; difficulty in walking Onset Date 01/24/19 Precautions Abdominal Surgery Precautions Log Roll Lifting Restrictions Gait Belt above Incisional Area M3 PT-IP Subjective Start: 01/25/19 15:19 Freq: NEEDED Status: Active Protocol: Document 01/29/19 15:57 CLB (Rec: 01/29/19 16:37 CLB [id number]) Subjective Physical Therapy Visit Type Type Treatment Note Visit Start Time 15:57 Visit Stop Time 14:20 Total Visit Minutes 23 Number of ASSISTANT OPERATOR Visits 5 Physical Therapy Visit Comments Patient Comments Pt eager to trial stair and ambulate. M4 PT-IP Mobility and Gait Start: 01/25/19 15:19 Freq: NEEDED Status: Active Protocol: Document 01/29/19 15:57 CLB (Rec: 01/29/19 16:37 CLB [id number]) PT-Bed Mobility Assessment Supine to Sit Supine to Sit Independent Sit to Supine Sit to Supine Independent Scooting Scooting to Edge of Bed Independent PT-Transfer Assessment Sit to and From Stand Sit to and from Stand Standby Assistance Equipment Transfer Assistive Device Gait Belt Front Wheeled Walker Orthotic/Prosthetic Devices or Brace: No Transfers Transfer Destination Bed Transfer Technique ambulated Transfer Ability Level of Assist Standby Assistance Comments Mobility Comments Pt independent with all bed mobility and is up in room independently to use BR per RN . Gait Assessment Gait Gait Assistance Required: Standby Assistance Distance (Feet) 800 Assistive Devices Assistive Device Gait Belt Front Wheeled Walker Gait Deviations General Gait Pattern Decreased Stride Length Decreased Feet Clearance Factors Limiting Gait Function Factors Limiting Gait Function Decreased Activity Tolerance Decreased Strength Pain Poor Balance Comments Gait Comments Pt ambulate from ICU to north end of second floor using elevator to climb therapy stairs. Pt ambulated ~5ft w/o AD but states she feels slightly dizzy and feels like she wants the FWW to use. Stair Climbing Assessment Evaluation Level of Assist On Stairs Contact Guard Assistance 1 Person Assistance Devices Stair Climbing Assistive Devices Left Railing Technique/Endurance Stair Climbing Direction Ascend and Descend Stair Climbing Technique Step Over Step Number of Steps Climbed 3 Stair Climbing Set # Repetitions (reps) 1 Comments Stair Climbing Comments Pt safely climbed 3 steps CGA. M5 PT-IP Objective Assessments Start: 01/25/19 15:19 Freq: NEEDED Status: Active Protocol: Document 01/25/19 14:00 AB (Rec: 01/25/19 16:05 AB [id number]) Orientation Orientation/Cognition Level of Alertness Alert Orientation Name Age Place Situation Language Function Ability No Deficits Noted Safety Awareness Understands Safety Issues Memory Description Short Term Impaired Gross Range of Motion Lower Extremity ROM Assessment Within Functional Limits Strength Lower Extremity Strength Assessment Within Functional Limits Coordination Assessment Gross Coordination Gross Coordination WNL Sensation Assessment Sensation Gross Sensation WNL Muscle Tone Muscle Tone WNL Yes M6 PT-IP Treatment Start: 01/25/19 15:19 Freq: NEEDED Status: Active Protocol: Document 01/25/19 14:00 AB (Rec: 01/25/19 16:05 AB [id number]) Physical Therapy Treatment Education Education Provided Precautions Safety M7 PT-IP Assessment and Plan Start: 01/25/19 15:19 Freq: NEEDED Status: Active Protocol: Document 01/29/19 15:57 CLB (Rec: 01/29/19 16:37 CLB [id number]) PT Summary Assessment and Plan Summary Impairments Pain ROM Strength Balance Bed Mobility Transfers Gait Activity Tolerance Assessment Summary Pt improved with all mobility and was able to ambulate ~800+ ft and climb stairs. Pt may need FWW and d/c depending on gait progression. Goals Bed Mobility Goal Standby Assistance Transfer Goal Standby Assistance Front Wheeled Walker Gait Goal Standby Assistance Front Wheel Walker Gait Distance 100 Other Goals improve ambulation without AD ~ 200 ft SBA up/down steps using 1 rail ~ 6 steps SBA Frequency of Treatment Frequency Of Treatment Twice a Day Treatment Plan Physical Therapy Treatment Plan Bed Mobility Training Transfer Training Gait Training Therapeutic Exercise Balance Retraining Post Op Education Discharge Planning Hot or Cold Pack Neuromuscular Re-ed Coordination Retraining Manual Therapy Other Recommendations and Next Treatment ambulation with least Focus restrictive AD. Issue walker if needed. Pt has one at home but may need one for travel home to [place]. Recommendations To Nursing Amount of Assist Needed 1 Person Assist Discharge Recommendations PT Discharge Recommendations Home with Assistance Equipment Needed for Home Before FWW if not safe without AD Discharge
--- NOTE | 2019-01-29 20:42 | PC.NURSE ---
2030 - Pt up ambulating around the unit. Reports pain as currently controlled. Denies nausea. Snack provided. Able to take PO meds without difficulty. Reinforced safety. Belongings and call light in reach.
[2019-01-30] VITALS: BP 122/68; PULSE 81; RESP 16; TEMP 36.3; O2SAT 96
[2019-01-30] MEDS: PIPERACILLIN-TAZO 3.375 GM/50 ML FROZ.PIGGY IV ×2 (00:15→06:14)
[2019-01-30] MEDS: KETOROLAC 30 MG/ML VIAL IV ×3 (03:31→20:56)
[2019-01-30 05:31] LABS: Add Manual Diff / Slide Review NO; Basophils Absolute Auto 0 /uL (0-100); Basophils Percent Auto 0.5 % (0-2); Eosinophils Absolute Auto 100 /uL (0-450); Eosinophils Percent Auto 1.9 % (2-4); Hematocrit 30.1 % (36-46); Hemoglobin 10.3 g/dL (12.0-16.0); Lymphocytes Absolute Auto 1400 /uL (1100-4500); Lymphocytes Percent Auto 24.9 % (25-40); Mean Corpuscular HGB Conc 34.1 % (30-36); Mean Corpuscular Hemoglobin 32.1 PG (26-34); Mean Corpuscular Volume 94.1 fL (80-100); Monocytes Absolute Auto 600 /uL (0-900); Neutrophils Absolute Auto 3400 /uL (1500-7000); Neutrophils Percent Auto 61.7 % (50-75); Platelet Count 241 X10^3/uL (150-400); Red Blood Cell Count 3.19 X10^6/uL (4.0-5.2); Red Cell Distribution Width 12.9 % (11.6-14.8); White Blood Cell Count 5.6 X10^3/uL (4.5-11.0)
[2019-01-30 05:49] LABS: Procalcitonin 0.13 ng/mL (<0.5)
[2019-01-30] MEDS: TIMOLOL 0.5% OPHTH 1 DROPS EYE-LEFT (06:19)
[2019-01-30 07:25] VITALS: BP 138/64; PULSE 77; RESP 18; TEMP 37.2; O2SAT 98
[2019-01-30] MEDS: ENOXAPARIN 40 MG/0.4 ML SYRINGE SUBCUT (08:02)
[2019-01-30] MEDS: GABAPENTIN 300 MG CAPSULE PO ×2 (08:02→20:55)
[2019-01-30] MEDS: SODIUM CHLORIDE 0.9% FLUSH 10 ML IV ×2 (08:03→20:56)
--- NOTE | 2019-01-30 10:35 | PT.IPTN ---
Current Diagnoses Volvulus (01/24/19) Surgery Performed Operation Date: 01/24/19 21:45 <No data on this case meets the specified criteria> Operation Date: 01/24/19 22:15 Actual Procedures p RIGHT HEMICOLECTOMY - Sorin Albarado MD Physical Therapy Treatment Note M2 PT-IP Current Condition Start: 01/25/19 15:19 Freq: NEEDED Status: Active Protocol: Document 01/25/19 14:00 AB (Rec: 01/25/19 16:05 AB [id number]) Physical Therapy Current Condition Current Condition Evaluation Date 01/25/19 Treatment Diagnosis s/p R hemicolectomy; difficulty in walking Onset Date 01/24/19 Precautions Abdominal Surgery Precautions Log Roll Lifting Restrictions Gait Belt above Incisional Area M3 PT-IP Subjective Start: 01/25/19 15:19 Freq: NEEDED Status: Active Protocol: Document 01/30/19 10:18 CLB (Rec: 01/30/19 12:51 CLB [id number]) Subjective Physical Therapy Visit Type Type Treatment Note Visit Start Time 10:18 Visit Stop Time 10:35 Total Visit Minutes 17 Number of FORGE HAND Visits 6 Physical Therapy Visit Comments Patient Comments pt agreeable to do PT Therapy Pain Assessment Pain When Pain Assessed During Mobility Pain Present Pain Present Denied Pain M4 PT-IP Mobility and Gait Start: 01/25/19 15:19 Freq: NEEDED Status: Active Protocol: Document 01/30/19 10:18 CLB (Rec: 01/30/19 12:51 CLB [id number]) PT-Transfer Assessment Sit to and From Stand Sit to and from Stand Independent Equipment Transfer Assistive Device Gait Belt Orthotic/Prosthetic Devices or Brace: No Transfers Transfer Destination Chair Transfer Ability Level of Assist Standby Assistance Gait Assessment Gait Gait Assistance Required: Standby Assistance Distance (Feet) 400 Assistive Devices Assistive Device None Gait Belt Orthotic/Prosthetic Devices or Brace: No Gait Deviations General Gait Pattern Decreased Stride Length Decreased Feet Clearance Factors Limiting Gait Function Factors Limiting Gait Function Decreased Activity Tolerance Decreased Strength Comments Gait Comments Pt able to ambulate without AD in acevedo ~400ft without LOB. M5 PT-IP Objective Assessments Start: 01/25/19 15:19 Freq: NEEDED Status: Active Protocol: Document 01/25/19 14:00 AB (Rec: 01/25/19 16:05 AB [id number]) Orientation Orientation/Cognition Level of Alertness Alert Orientation Name Age Place Situation Language Function Ability No Deficits Noted Safety Awareness Understands Safety Issues Memory Description Short Term Impaired Gross Range of Motion Lower Extremity ROM Assessment Within Functional Limits Strength Lower Extremity Strength Assessment Within Functional Limits Coordination Assessment Gross Coordination Gross Coordination WNL Sensation Assessment Sensation Gross Sensation WNL Muscle Tone Muscle Tone WNL Yes M6 PT-IP Treatment Start: 01/25/19 15:19 Freq: NEEDED Status: Active Protocol: Document 01/25/19 14:00 AB (Rec: 01/25/19 16:05 AB [id number]) Physical Therapy Treatment Education Education Provided Precautions Safety M7 PT-IP Assessment and Plan Start: 01/25/19 15:19 Freq: NEEDED Status: Active Protocol: Document 01/30/19 10:18 CLB (Rec: 01/30/19 12:51 CLB [id number]) PT Summary Assessment and Plan Summary Impairments Pain ROM Strength Balance Bed Mobility Transfers Gait Activity Tolerance Progress Towards Goals Safe For Discharge Assessment Summary Pt is able to ambulate in room w/o AD Independently, pt is SBA without AD ~400ft. This FORGE HAND has spoken with PT and pt will be d/c from PT and pt will be be able to ambulate with assist of . RN informed. Goals Bed Mobility Goal Standby Assistance Transfer Goal Standby Assistance Front Wheeled Walker Gait Distance 100 Other Goals improve ambulation without AD ~ 200 ft SBA up/down steps using 1 rail ~ 6 steps SBA Frequency of Treatment Frequency Of Treatment Discharge Treatment Plan Physical Therapy Treatment Plan Bed Mobility Training Transfer Training Gait Training Therapeutic Exercise Balance Retraining Post Op Education Discharge Planning Hot or Cold Pack Neuromuscular Re-ed Coordination Retraining Manual Therapy Recommendations To Nursing Amount of Assist Needed Independent Discharge Recommendations PT Discharge Recommendations Home with Assistance
--- NOTE | 2019-01-30 14:47 | PC.NURSE ---
Pt up walking around indepedently without assistive device. Gait is steady. VSS. Has been cleared by PT. Tolerating general diet. Pain is well-controlled with PRN toradol. Pt is interested in non-narcotic PO pain meds for d/c.
[2019-01-30 15:15] VITALS: BP 116/63; PULSE 87; RESP 16; TEMP 37.1; O2SAT 98
--- NOTE | 2019-01-30 18:28 | PC.NURSE ---
1820 - Pt up independent in room. Reports pain as controlled at this time. Pt making arrangements for discharge in a.m. and travel home on Sunday morning. Educated to activity and pain control. Pt verbalized understanding. Reinforced safety and call light use. Call light in reach.
[2019-01-30 23:33] VITALS: BP 115/73; PULSE 87; RESP 18; TEMP 37; O2SAT 93
[2019-01-31] MEDS: KETOROLAC 30 MG/ML VIAL IV (05:20)
[2019-01-31 07:56] VITALS: BP 122/71; PULSE 78; RESP 14; TEMP 37.3; O2SAT 97
[2019-01-31] MEDS: TIMOLOL 0.5% OPHTH 1 DROPS EYE-LEFT (09:01)
[2019-01-31] MEDS: ENOXAPARIN 40 MG/0.4 ML SYRINGE SUBCUT (09:03)
[2019-01-31] MEDS: GABAPENTIN 300 MG CAPSULE PO (09:10)
[2019-01-31] MEDS: SODIUM CHLORIDE 0.9% FLUSH 10 ML IV (09:13)
--- NOTE | 2019-01-31 12:15 | PM.DS.1 ---
History of Present Illness Chief complaint: Severe abd pain Narrative: The patient is a woman who has been traveling. She is from [place]. Earlier today she developed diffuse abdominal pain. She told me that she has had 3 bowel movements. Two of them were normal and the 3rd was a little loose. No blood in her stool. Her belly be can distended and painful. She has had no nausea or vomiting. Her last p.o. was 8:00 a.m. except for some sips of water around lunch. The pain has been persistent worsening. She has never had this before. She had a normal colonoscopy she said 2 months ago. There were no polyps or tumors. She has not passed any flatus this evening. 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 Hospital Course: When it became clear that the patient had a cecal volvulus she was emergently taken to the operating room where she underwent exploration. She was found to have a gangrenous cecum that appeared to be filled with blood. She underwent a right hemicolectomy with a primary ileocolonic anastomosis. her postoperative course was fairly smooth. Her diet was gradually advanced. She remained unusually distended but plain x-ray showed that she her gas pattern was fairly normal within her intestine but that she had residual free air. This of course led to concerned about a possible anastomotic breakdown except the patient is abdomen was soft, minimally tender, her white blood cell count was 6 and 5 with a normal differential and normal platelet count. She was afebrile and her procalcitonin was within normal limits after cessation of her IV antibiotics. It appears she may just be slow to reabsorbed intraperitoneal air from her operation. Her incision was intact at discharge and there was no cellulitis. [place] were fine. Arrangements were made for her to follow up with her surgeon in [place] where she lives. She was discharged on p.o. narcotics, Naprosyn and Lovenox to prevent DVT. It is their intention to fly back to [place] after an overnight stay in [facility]. Status at Discharge Cognitive/behavioral status at discharge: oriented Functional status at discharge: independent ambulation Overall status at discharge: patient is progressing back to baseline Exam Vital Signs (past 8 hours): - 01/31/19 07:56 Temperature 99.1 F Pulse Rate 78 Respiratory Rate 14 Blood Pressure 122/71 Pulse Oximetry 97 Oxygen Delivery Method Room Air Oxygen Flow Rate 0 Narrative Exam Narrative: No apparent distress. Moves well. Abdomen little distended soft minimally tender without cellulitis. Objective Labs Result Diagrams: 01/30/19 04:53 01/29/19 04:41 Discharge Plan Discharge Plan Discharge Problem: Sigmoid volvulus, Large bowel obstruction Patient Disposition: Home Discharge comment: You had the right portion of her colon removed. her small bowel was sewed back to your colon that was remaining. You should take it easy. Her lab to walk. He used to take a multiple vitamin with iron daily. Your blood count is a little low but should come up on its own. You can expect to feel somewhat washed out and tired for several weeks. Then you should gradually start to feel like herself. You may find that some foods do not taste normal. if it has occurred, This should go away with time over period of a couple of weeks. Discharge Med Rec/Prescriptions Prescriptions: New oxycodone-acetaminophen [Percocet] 5-325 mg tablet See Rx Instructions .ROUTE .COMPLEX PRN (Reason: painful procedure) Qty: 20 RF: 0 naproxen [Naprosyn] 500 mg tablet 500 mg PO BID PRN (Reason: painful procedure) Qty: 30 RF: 0 enoxaparin [Lovenox] 40 mg/0.4 mL syringe 40 mg SUBCUT DAILY Qty: 4 RF: 0 Continued simvastatin 5 mg tablet 5 mg PO DAILY RF: 0 timolol maleate 0.5 % drops 1 drp EYE-LEFT 0700 RF: 0 calcium citrate-vitamin D3 [Calcitrate-Vitamin D] 315 mg- 250 unit Tablet 1 tab PO DAILY RF: 0 Multivitamin Women 50 Plus 8 mg iron-400 mcg-300 mcg Tablet 1 tab PO DAILY RF: 0 Follow up/Referrals: Sorin Albarado MD [Physician] - None (Follow-up with your local surgeon. If you need to reach me for any reason or your doctor needs to the numbers are in this dictation.) Provider Discharge Instructions Diet: Diet as Tolerated Activity: Do not lift over 10 lb or strain for at least another 5 weeks. Then you may gradually resume normal activity. No pool or tub for at least 3 weeks. You may however shower. Soap and Water running over the incision will not hurt it. Skin/Wound/Dressing Care Report to your healthcare provider any signs of infection, such as:: chills, fever, increased pain, unusual drainage and unusual redness Dressing: You can wear gauze over your incision if you so desire but it is not necessary. Visit Report/Discharge Packet Instructions: Volvulus-Adult Discharge Data Attending Provider: Sorin Albarado Admit Date/Time: 01/24/19 21:21 Quality VTE Deep Vein Thrombosis/Pulmonary Embolism Present on Admission: Yes
[2019-01-31] MEDS: NAPROXEN 250 MG TABLET 500 MG PO (13:30)
--- NOTE | 2019-01-31 14:32 | CM.DANOTE ---
Discharged to home in . Awake, alert, oriented. NAD. VSS. Surgical site C/D/I. Covered with ABD pad for pt. comfort. PIV d/c'd. Accompanied by spouse. D/C instructions given. Naproxen 500mg p.o. immediately before discharge. All personal effects with pt.
--- NOTE | 2019-01-31 15:25 | CM.DPC ---
DCP: continued: Case discussed in Team Rounds over last couple days. Noted pt mobilizing in ICU setting. She was deemed stable for home today and did go with her as planned. 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 They were eager to get back to home in [place].
== END 2019-01-31 13:30 | disposition home or self-care (01) | DRG 329 ==
LOC: ED 20:34 → AC 21:22 → ICU 01-25 07:13
PROVIDERS: Admitting Provider Specialist; Emergency Provider Emergency Medicine; Visit Provider Specialist
PROC: 0DTF0ZZ Resection of Right Large Intestine, Open Approach (ICD-10-PCS; CPT 44140; principal; 2019-01-24 22:15)
DX: K56.2 Volvulus (principal); K55.041 Focal (segmental) acute infarction of large intestine; K55.021 Focal (segmental) acute infarction of small intestine; D62 Acute posthemorrhagic anemia; H40.9 Unspecified glaucoma
CPT/HCPCS: 36415; 44160; 74018; 74022; 74177; 80053; 81003; 81015; 83690; 83735; 84145; 85025; 85610; 85730; 87797; 93005; 96361; 96374; 96375; 96376; 97116; 97162; 97165; 97530; 97535; 99223; 99283; 99285; J1100; J1170; J1650; J1885; J2405; J2543; J2704; J3010; Q9967